=== PATIENT | male | born 1930 | race Caucasian/White ===

== ENCOUNTER 2017-01-22 13:49 | Emergency (ER) | payer MEDICARE, OTHER ==
[2017-01-22 13:54] VITALS: BMI 28.0
[2017-01-22 14:57] LABS: ALB/GLOB RATIO 1.2 (1.1-1.8); ALKALINE PHOSPHATASE 72 U/L (38-126); ALT/SGPT 26 U/L (7-56); AST/SGOT 34 U/L (17-59); BILIRUBIN,TOTAL 0.3 mg/dL (0.2-1.3); BLOOD UREA NITROGEN 34 mg/dL (7-21); CALCIUM 9.2 mg/dL (8.4-10.5); CARBON DIOXIDE 26 mmol/L (21-33); CHLORIDE 103 mmol/L (98-107); GFR AFRICAN-AMERICAN 46; GLUCOSE,RANDOM 132 mg/dL (70-110); POTASSIUM 4.6 mmol/L (3.6-5.0); SODIUM 142 mmol/L (132-148); TOTAL PROTEIN 7.5 g/dL (5.8-8.3)
[2017-01-22 14:58] LABS: INR 1.02 (0.93-1.08)
[2017-01-22 15:09] LABS: TROPONIN I < 0.01 ng/mL
[2017-01-22 15:10] LABS: BASO # 0.01 K/mm3 (0.0-2.0); BASO % 0.1 % (0.0-3.0); EOS # 0.2 (0.0-0.7); EOS % 2.2 % (1.5-5.0); GRAN # 4.54 (1.4-6.5); GRAN % 67.4 % (50.0-68.0); LYMPH # 1.6 (1.2-3.4); LYMPH % 23.3 % (22.0-35.0); MEAN CELL VOLUME 88.9 fl (80.0-105.0); MEAN CORPUSCULAR HEMOGLOBIN 29.4 pg (25.0-35.0); MEAN PLATELET VOLUME 8.9 fl (7.0-11.0); MONO # 0.5 (0.1-0.6); RED CELL DISTRIBUTION WIDTH 13.8 % (11.5-14.5); WHITE BLOOD COUNT 6.7 10^3/ul (4.5-11.0)
[2017-01-22 15:27] LABS: URINE BILIRUBIN NEGATIVE (NEGATIVE); URINE BLOOD NEGATIVE (NEGATIVE); URINE GLUCOSE (UA) NEGATIVE (NEGATIVE); URINE KETONE NEGATIVE (NEGATIVE); URINE LEUKOCYTE ESTERASE NEGATIVE Leu/uL (NEGATIVE); URINE PROTEIN 100 mg/dL (<30 mg/dL); URINE UROBILINOGEN 0.2 E.U./dL (<1 E.U./dL)
[2017-01-22 15:29] LABS: URINE APPEARANCE CLEAR (CLEAR); URINE COLOR YELLOW (YELLOW)
[2017-01-22] MEDS ORDERED: Sodium Chloride 0.9% 1,000 ML IV SCH (15:30)
--- NOTE | 2017-01-22 15:31 | CT ---
PROCEDURE: CT HEAD WITHOUT CONTRAST. HISTORY: RLE weakness COMPARISON: CT 05/31/2016 TECHNIQUE: Axial computed tomography images were obtained through the head/brain without intravenous contrast. Radiation dose: Total exam DLP = 689 mGy-cm. This CT exam was performed using one or more of the following dose reduction techniques: Automated exposure control, adjustment of the mA and/or kV according to patient size, and/or use of iterative reconstruction technique. FINDINGS: HEMORRHAGE: No intracranial hemorrhage. BRAIN: No mass effect or edema. There is a focal area of encephalomalacia in the parietal lobe. This is unchanged. There are no acute findings. VENTRICLES: Unremarkable. No hydrocephalus. CALVARIUM: Unremarkable. PARANASAL SINUSES: Unremarkable as visualized. No significant inflammatory changes. MASTOID AIR CELLS: Unremarkable as visualized. No inflammatory changes. OTHER FINDINGS: None. IMPRESSION: No acute intracranial findings
--- NOTE | 2017-01-22 15:40 | CP.PCM.CON ---
History of Present Illness - History of Present Illness History of Present Illness: Mr. Dixon is an 86-year-old man with a past medical history of atrial fibrillation, ischemic stroke, on Eliquis, who had a fall down the stairs about one week ago resulting in a hematoma over the buttock region. This morning, he was noted to have slurred speech and difficulty, but that improved. He was also having more trouble with ambulation due to right lower extremity weakness. He continues to complain of abdominal and right thigh pain. Review of Systems - Review of Systems All systems: reviewed and no additional remarkable complaints except Past Patient History - Infectious Disease Hx of Infectious Diseases: None - Tetanus Immunizations Tetanus Immunization: Unknown - Past Medical History & Family History Past Medical History?: Yes - Past Social History Smoking Status: Never Smoked - CARDIAC Hx Cardiac Disorders: Yes Hx Hypertension: Yes - PULMONARY Hx Chronic Obstructive Pulmonary Disease (COPD): No Hx Pneumonia: No - NEUROLOGICAL HX Cerebrovascular Accident: Yes (11/13/2013) - HEENT Hx HEENT Problems: (RX GLASSES) - RENAL Hx Renal Failure: No - ENDOCRINE/METABOLIC Hx Diabetes Mellitus Type 2: Yes - HEMATOLOGICAL/ONCOLOGICAL Hx Blood Disorders: No - INTEGUMENTARY Hx Dermatological Problems: No - MUSCULOSKELETAL/RHEUMATOLOGICAL Hx Arthritis: (Gout) - GASTROINTESTINAL Hx Gastroesophageal Reflux: No - GENITOURINARY/GYNECOLOGICAL Hx Genitourinary Disorders: Yes Hx Prostate Cancer: Yes - PSYCHIATRIC Hx Psychophysiologic Disorder: No Hx Substance Use: No - SURGICAL HISTORY Hx Surgeries: Yes Other/Comment: b/l eye surgery - ANESTHESIA Hx Anesthesia: Yes Hx Anesthesia Reactions: No Hx Malignant Hyperthermia: No Meds Allergies/Adverse Reactions: Allergies Allergy/AdvReac Type Severity Reaction Status Date / Time No Known Allergies Allergy Verified 06/04/16 20:15 - Medications Medications: Current Medications Sodium Chloride (Sodium Chloride 0.9%) 1,000 mls @ 100 mls/hr IV .Q10H VALENTIN Physical Exam - Head Exam Head Exam: ATRAUMATIC, NORMAL INSPECTION, NORMOCEPHALIC - Eye Exam Eye Exam: EOMI, Normal appearance, PERRL - ENT Exam ENT Exam: Mucous Membranes Moist, Normal Exam - Respiratory Exam Respiratory Exam: Clear to Auscultation Bilateral, NORMAL BREATHING PATTERN - Cardiovascular Exam Cardiovascular Exam: Irregular Rhythm, +S1, +S2 - GI/Abdominal Exam GI & Abdominal Exam: Normal Bowel Sounds, Soft. absent: Tenderness - Rectal Exam Rectal Exam: Deferred - Extremities Exam Extremities exam: Positive for: tenderness - Back Exam Back exam: CVA tenderness (R) - Neurological Exam Neurological exam: Abnormal Gait, CN II-XII Intact, Oriented x3, Reflexes Normal Additional comments: NIHSS= 2 - Expanded Neurological Exam Expanded Patient oriented to: person, place, time Cranial nerves: EOM's Intact: Normal, Facial Sensation: Normal, Nystagmus: Normal Ataxia: No Cerebellar Function: Finger to Nose: Normal Upper motor neuron: Babinski Sign: Normal Sensory exam: Lower Extremity Light Touch: Normal, Lower Extremity Pin Prick: Normal, Upper Extremity Light Touch: Normal, Upper Extremity Pin Prick: Normal Neuro motor strength exam: Left Upper Extremity: 5, Right Upper Extremity: 5, Left Lower Extremity: 5, Right Lower Extremity: 3 DTR: Achilles Tendon Left: 2+, Achilles Tendon Right: 2+, Bicep Left: 2+, Bicep Right: 2+, Brachioradialis Left: 2+, Brachioradialis Right: 2+, Patellar Left: 2 +, Patellar Right: 2+, Tricep Left: 2+, Tricep Right: 2+ - Psychiatric Exam Psychiatric exam: Normal Affect, Normal Mood - Skin Skin Exam: Dry, Intact, Normal Color, Warm Results - Vital Signs Recent Vital Signs: Last Vital Signs Temp 97.9 F 01/22/17 13:50 Pulse 75 01/22/17 13:50 Resp 18 01/22/17 13:50 BP 171/75 H 01/22/17 13:50 Pulse Ox 97 01/22/17 13:50 - Labs Result Diagrams: 01/22/17 14:30 01/22/17 14:30 Labs: Laboratory Results - last 24 hr 01/22/17 01/22/17 01/22/17 14:30 14:30 14:30 WBC 6.7 D RBC 3.71 Hgb 10.9 L Hct 33.0 L MCV 88.9 MCH 29.4 MCHC 33.0 RDW 13.8 Plt Count 295 MPV 8.9 Gran % 67.4 Lymph % (Auto) 23.3 Williams % (Auto) 7.0 H Eos % (Auto) 2.2 Baso % (Auto) 0.1 Gran # 4.54 Lymph # 1.6 Williams # 0.5 Eos # 0.2 Baso # 0.01 PT 11.0 INR 1.02 APTT 28.0 Sodium 142 Potassium 4.6 Chloride 103 Carbon Dioxide 26 Anion Gap 18 BUN 34 H Creatinine 1.7 H Est GFR ( Amer) 46 Est GFR (Non-Af Amer) 38 Random Glucose 132 H Calcium 9.2 Total Bilirubin 0.3 AST 34 ALT 26 Alkaline Phosphatase 72 Troponin I < 0.01 Total Protein 7.5 Albumin 4.2 Globulin 3.4 Albumin/Globulin Ratio 1.2 - Imaging and Cardiology CT scan - head Status: Image reviewed by me, Report reviewed by me (No acute findings. ) Assessment & Plan (1) Right leg weakness Assessment and Plan: The patient also complains of pain in the abdominal and thigh region. With the history of fall and being on Eliquis, there is concern for a possible retroperitoneal hematoma. He has also had recent blood in the urine and may by at risk for bleed. CT of the head does not show acute findings. If there is no intra-abdominal or peripheral compression abnormality to explain the proximal leg weakness on the right side, the patient may be having an ischemic event. In that case, an MRI of the brain without contrast is indicated. I recommend the followin. Telemetry 2. MRI of the brain without contrast 3. Echocardiogram 4. Hydration with NS at 100 mL/hr 5. Permissive hypertension unless there is a hematoma (do not treat BP unless it is higher than 200/100 mm Hg) 6. PT/OT eval and treat 7. Continue Eliquis 2.5 mg BID and Lipitor 40 mg daily for secondary stroke prevention (unless there is hematoma formation). Thank you. Status: Acute Priority: High
[2017-01-22] MEDS ORDERED: Iohexol 350 MG/100 ML VIAL ONE (15:45)
[2017-01-22 15:48] LABS: URINE AMORPHOUS SEDIMENT FEW; URINE BACTERIA MOD (NEG); URINE RBC 0 - 2 /hpf (0-2); URINE WBC 0 - 2 /hpf (0-6)
--- NOTE | 2017-01-22 15:50 | CT ---
PROCEDURE: CT Abdomen and Pelvis with contrast HISTORY: RETROPERITONEAL BLEED COMPARISON: None. TECHNIQUE: Contrast dose: 100 cc of Omni 350 Radiation dose: Total exam DLP = 447 mGy-cm. This CT exam was performed using one or more of the following dose reduction techniques: Automated exposure control, adjustment of the mA and/or kV according to patient size, and/or use of iterative reconstruction technique. The patient had a BUN of 34 a creatinine of 1.[address] a GFR 38[address] Lozada insisted on IV contrast for this case. FINDINGS: LOWER THORAX: Unremarkable. LIVER: Unremarkable. No gross lesion or ductal dilatation. GALLBLADDER AND BILE DUCTS: Unremarkable. PANCREAS: Unremarkable. No gross lesion or ductal dilatation. SPLEEN: Unremarkable. ADRENALS: Unremarkable. No mass. KIDNEYS AND URETERS: Bilateral nonobstructing renal stones. VASCULATURE: Unremarkable. No aortic aneurysm. BOWEL: Unremarkable. No obstruction. No gross mural thickening. There is a left inguinal hernia which contains a segment of the sigmoid colon. There is no associated obstruction. The hernia measures 4.2 x 6.4 cm as seen on image 154 APPENDIX: Normal appendix. PERITONEUM: Unremarkable. No free fluid. No free air. There is no evidence of retroperitoneal hemorrhage LYMPH NODES: Unremarkable. No enlarged lymph nodes. BLADDER: Unremarkable. REPRODUCTIVE: Unremarkable. BONES: No acute fracture. OTHER FINDINGS: None. IMPRESSION: No evidence of retroperitoneal hemorrhage. Left inguinal hernia without obstruction
--- NOTE | 2017-01-22 16:17 | RAD ---
PROCEDURE: CHEST RADIOGRAPH, 1 VIEW HISTORY: r/o infiltrate COMPARISON: 06/04/2016 FINDINGS: LUNGS: Clear. PLEURA: No pneumothorax or pleural fluid seen. CARDIOVASCULAR: Normal. OSSEOUS STRUCTURES: No significant abnormalities. VISUALIZED UPPER ABDOMEN: Normal. OTHER FINDINGS: Moderate aortic tortuosity IMPRESSION: No active disease.
--- NOTE | 2017-01-22 16:22 | MRI ---
PROCEDURE: MRI BRAIN WITHOUT CONTRAST HISTORY: RLE weakness COMPARISON: Earlier CT of the head TECHNIQUE: Multiplanar, multisequence MR images of the brain were obtained without intravenous contrast enhancement. FINDINGS: HEMORRHAGE: None DWI: No evidence of an acute or early subacute infarction. BRAIN PARENCHYMA: No mass effect or edema. Mild to moderate chronic microvascular changes are seen in the periventricular white matter and the melanie. VENTRICLES: Unremarkable. No hydrocephalus. CRANIUM: Unremarkable. ORBITS: Grossly unremarkable. PARANASAL SINUSES/MASTOIDS: Clear VASCULAR SYSTEM: Skull base flow voids intact. OTHER FINDINGS: None. IMPRESSION: No acute intracranial findings.
--- NOTE | 2017-01-22 17:31 | ED PDOC ---
Arrival/HPI - General Chief Complaint: Weakness/Neurological Deficit Time Seen by Provider: 01/22/17 13:54 Historian: Patient - History of Present Illness Narrative History of Present Illness (Text): 01/22/17 14:07 A 86 year old male, whose past medical history includes CVA, presents to the emergency department complaining of possible CVA. Patient reports experiencing right arm weakness since yesterday and right leg weakness when he awoke at 07: 00 today. Patient denies of any fever, cough, chest pain, shortness of breath, abdominal pain, or any other complaints. Also, patient is complaint with all medications prescribed. No PMD Time/Duration: 24 hours (right arm weakness), Other (right leg weakness at 07:00 ) Symptom Onset: Sudden Symptom Course: Unchanged Context: Home Past Medical History - Provider Review Nursing Documentation Reviewed: Yes - Infectious Disease Hx of Infectious Diseases: None - Tetanus Immunization Tetanus Immunization: Unknown - Cardiac Hx Cardiac Disorders: Yes Hx Hypertension: Yes - Pulmonary Hx Chronic Obstructive Pulmonary Disease (COPD): No Hx Pneumonia: No - Neurological HX Cerebrovascular Accident: Yes (11/13/2013) - HEENT Hx HEENT Disorder: (RX GLASSES) - Renal Hx Renal Failure: No - Endocrine/Metabolic Hx Diabetes Mellitus Type 2: Yes - Hematological/Oncological Hx Blood Disorders: No - Integumentary Hx Dermatological Disorder: No - Musculoskeletal/Rheumatological Hx Arthritis: (Gout) - Gastrointestinal Hx Gastroesophageal Reflux: No - Genitourinary/Gynecological Hx Genitourinary Disorders: Yes Hx Prostate Cancer: Yes - Psychiatric Hx Psychophysiologic Disorder: No Hx Substance Use: No - Surgical History Other/Comment: b/l eye surgery - Anesthesia Hx Anesthesia: Yes Hx Anesthesia Reactions: No Hx Malignant Hyperthermia: No - Suicidal Assessment Feels Threatened In Home Enviroment: No Family/Social History - Physician Review Nursing Documentation Reviewed: Yes Family/Social History: No Known Family HX Smoking Status: Never Smoked Hx Alcohol Use: No (But reported drinking 1 beer a day (last was more than 4 days ago)) Hx Substance Use: No Allergies/Home Meds Allergies/Adverse Reactions: Allergies No Known Allergies Allergy (Verified 06/04/16 20:15) Home Medications: Home Meds Medication Instructions Recorded Confirmed Insulin Lispro [Humalog (Insulin See Protocol SQ ACHS 06/04/16 01/22/17 Lispro)] Polyethylene Glycol 3350 [Miralax] 17 gm PO BID 06/04/16 01/22/17 Review of Systems - Physician Review All systems were reviewed & negative as marked: Yes - Review of Systems Constitutional: absent: Fevers Respiratory: absent: SOB, Cough Gastrointestinal: absent: Abdominal Pain Neurological: Focal Weakness (right arm weakness and right leg weakness) Physical Exam Vital Signs Reviewed: Yes Vital Signs Temp Pulse Resp BP Pulse Ox 01/22/17 19:00 97.6 F 82 19 146/82 99 01/22/17 17:00 97.8 F 80 19 158/86 H 100 01/22/17 15:45 74 18 133/65 97 01/22/17 13:50 97.9 F 75 18 171/75 H 97 Temperature: Afebrile Blood Pressure: Hypertensive Pulse: Regular Respiratory Rate: Normal Appearance: Positive for: Well-Appearing, Non-Toxic, Comfortable Pain Distress: None Mental Status: Positive for: Alert and Oriented X 3 Finger Stick Blood Glucose: 168 - Systems Exam Head: Present: Atraumatic, Normocephalic Pupils: Present: PERRL Extroacular Muscles: Present: EOMI Conjunctiva: Present: Normal Mouth: Present: Moist Mucous Membranes Neck: Present: Normal Range of Motion Respiratory/Chest: Present: Clear to Auscultation, Good Air Exchange. No: Respiratory Distress, Accessory Muscle Use Cardiovascular: Present: Regular Rate and Rhythm, Normal S1, S2. No: Murmurs Abdomen: Present: Normal Bowel Sounds. No: Tenderness, Distention, Peritoneal Signs Back: Present: Normal Inspection Upper Extremity: Present: Normal Inspection. No: Cyanosis, Edema Lower Extremity: Present: Normal Inspection. No: Edema Neurological: No: Motor Func Grossly Intact (4/5 right lower extremity strength ; 4/5 right upper extremity strength) Skin: Present: Warm, Dry, Normal Color. No: Rashes Psychiatric: Present: Alert, Oriented x 3, Normal Insight, Normal Concentration Medical Decision Making ED Course and Treatment: 01/22/17 14:12 Impression: 86 year old male with possible stroke. Physical exam shows in neuro exam right lower extremity 4/5 motor function and right upper extremity 4/5 motor function. Plan: -- EKG -- Head CT -- Brain MRI -- Chest X-ray -- Labs -- Urine Culture -- Urinalysis -- Reassess and disposition Prior Visits: Notes and results from previous visits were reviewed. Patient was last seen in the emergency department on 05/31/2016 for right lower extremity weakness. Patient was diagnosed with CVA and was admitted. Progress Notes: EKG: Ordered, reviewed, and independently interpreted the EKG. Rate : 77 BPM Rhythm : NSR Interpretation : No ST-segment elevations or depressions, no T-wave inversions, normal intervals. Comparison : No previous EKG for comparison. 01/22/2017 15:[address] FINDINGS: HEMORRHAGE: No intracranial hemorrhage. BRAIN: No mass effect or edema. There is a focal area of encephalomalacia in the parietal lobe. This is unchanged. There are no acute findings. VENTRICLES: Unremarkable. No hydrocephalus. CALVARIUM: Unremarkable. PARANASAL SINUSES: Unremarkable as visualized. No significant inflammatory changes. MASTOID AIR CELLS: Unremarkable as visualized. No inflammatory changes. OTHER FINDINGS: None. IMPRESSION: No acute intracranial findings Dictator : Alex Stewart MD 01/22/2017 16:15 Chest X-ray FINDINGS: LUNGS: Clear. PLEURA: No pneumothorax or pleural fluid seen. CARDIOVASCULAR: Normal. OSSEOUS STRUCTURES: No significant abnormalities. VISUALIZED UPPER ABDOMEN: Normal. OTHER FINDINGS: Moderate aortic tortuosity IMPRESSION: No active disease. Dictator : Alex Stewart MD 01/22/2017 16:20 Brain MRI FINDINGS: HEMORRHAGE: None DWI: No evidence of an acute or early subacute infarction. BRAIN PARENCHYMA: No mass effect or edema. Mild to moderate chronic microvascular changes are seen in the periventricular white matter and the melanie. VENTRICLES: Unremarkable. No hydrocephalus. CRANIUM: Unremarkable. ORBITS: Grossly unremarkable. PARANASAL SINUSES/MASTOIDS: Clear VASCULAR SYSTEM: Skull base flow voids intact. OTHER FINDINGS: None. IMPRESSION: No acute intracranial findings. Dictator : Alex Stewart MD - Lab Interpretations Lab Results: 01/22/17 14:30 01/22/17 14:30 Lab Results 01/22/17 14:50: Urine Color Yellow, Urine Appearance Clear, Urine pH 6.0, Ur Specific [place] 1.025, Urine Protein 100 H, Urine Glucose (UA) Negative, Urine Ketones Negative, Urine Blood Negative, Urine Nitrate Negative, Urine Bilirubin Negative, Urine Urobilinogen 0.2, Ur Leukocyte Esterase Negative, Urine RBC 0 - 2, Urine WBC 0 - 2, Ur Epithelial Cells None, Amorphous Sediment Few, Urine Bacteria Mod, Hyaline Casts 0 - 2, Fine Granular Casts 0 - 2 01/22/17 14:30: Sodium 142, Potassium 4.6, Chloride 103, Carbon Dioxide 26, Anion Gap 18, BUN 34 H, Creatinine 1.7 H, Est GFR ( Amer) 46, Est GFR ( Non-Af Amer) 38, Random Glucose 132 H, Calcium 9.2, Total Bilirubin 0.3, AST 34 , ALT 26, Alkaline Phosphatase 72, Troponin I < 0.01, Total Protein 7.5, Albumin 4.2, Globulin 3.4, Albumin/Globulin Ratio 1.2 01/22/17 14:30: PT 11.0, INR 1.02, APTT 28.0 01/22/17 14:30: WBC 6.7 D, RBC 3.71, Hgb 10.9 L, Hct 33.0 L, MCV 88.9, MCH 29.4 , MCHC 33.0, RDW 13.8, Plt Count 295, MPV 8.9, Gran % 67.4, Lymph % (Auto) 23.3 , [place] % (Auto) 7.0 H, Eos % (Auto) 2.2, Baso % (Auto) 0.1, Gran # 4.54, Lymph # 1.6, [place] # 0.5, Eos # 0.2, Baso # 0.01 I have reviewed the lab results: Yes - RAD Interpretation Radiology Orders: 01/22/17 14:09 HEAD W/O CONTRAST [CT] Stat 01/22/17 14:10 BRAIN WITHOUT CONTRAST [MRI] Stat 01/22/17 14:12 CHEST ONE VIEW [RAD] Stat 01/22/17 15:10 ABD & PELVIS IV CONTRAST ONLY [CT] Stat - Medication Orders Current Medication Orders: Discontinued Medications Sodium Chloride (Sodium Chloride 0.9%) 1,000 mls @ 100 mls/hr IV .Q10H VALENTIN Last Admin: 01/22/17 15:42 Dose: 100 mls/hr Iohexol (Omnipaque 350 100 Ml) Confirm Administered Dose 350 mg .ROUTE .STK-MED ONE Stop: 01/22/17 15:46 NIHSS Scale ([place]) Time Performed: 15:50 - How Severe is the [place]oke Baseline Level of Consciousness: 0=Alert LOC to Questions: 0=Both comments correct LOC to commands: 0=Obeys both correctly Best Gaze: 0=Normal Visual: 0=No visual loss Facial: 0=Normal Motor Arm - Left: 0=No drift Motor Arm - Right: 0=No drift Motor Leg - Left: 0=No drift Motor Leg - Right: 1=Drift before 5 sec Limb Ataxia: 0=Absent Sensory: 0=Normal Best Language: 0=No aphasia Dysarthia: 0=Normal articulation Extinction & Inattention (Neglect): 0=Normal, no object Score: 1 Risk Level: Minor Stroke Risk rTPA Inclusion/Exclusion - Refusal of Treatment Patient Refused Treatment: No - Inclusion Criteria for Altepase Patient is 18 years or Older: Yes The Clinical Diagnosis of Ischemic Stroke That is Causing a Potentially Disabling Neurological Deficit: Yes Time of Onset is Well Established to be Less Than 270 Minute Before Treatment Would Begin: No Risk/Benefit Discussed With Patient/Family Member Present: Yes - Scribe Statement The provider has reviewed the documentation as recorded by the Mundo Martin Provider Scribe Attestation: All medical record entries made by the Mundo were at my direction and personally dictated by me. I have reviewed the chart and agree that the record accurately reflects my personal performance of the history, physical exam, medical decision making, and the department course for this patient. I have also personally directed, reviewed, and agree with the discharge instructions and disposition. Disposition/Present on Arrival - Present on Arrival Any Indicators Present on Arrival: No History of DVT/PE: No History of Uncontrolled Diabetes: Yes Urinary Catheter: No History of Decub. Ulcer: No History Surgical Site Infection Following: None - Disposition Have Diagnosis and Disposition been Completed?: Yes Diagnosis: TIA (transient ischemic attack) Disposition: HOME/ ROUTINE Disposition Time: 16:30 Patient Problems: Current Active Problems Problem Status Onset Right leg weakness Acute Condition: FAIR Critical Care Time - Critical Care Note Total Time (in mins): 40 Documented critical care: time excludes all time spent performing seperately billable procedures.
[2017-01-22 20:13] VITALS: RESP 19
[2017-01-22 20:15] VITALS: BP 146/82; PULSE 82; TEMP 97.6; O2SAT 99
--- NOTE | 2017-01-23 05:09 | HP ---
HISTORY OF PRESENT ILLNESS: The patient is seen in the emergency room. The patient was brought in by the family. Apparently, the patient has had symptoms of slurred speech this morning and the patient had a fall one week ago and sustained an injury to the right buttock. The patient had pain in the right leg and right side of the abdomen, and the patient had poor balance and unstable gait and the fall was from the staircase of the house. However, the patient is alert and conscious. The patient is lying in bed, very pleasant gentleman, answers all questions. PAST MEDICAL HISTORY: His past history is significant and that he has history of diabetes, history of ischemic stroke in the past. The patient has been diagnosed with atherosclerotic heart disease with atrial fibrillation. The patient also has history of constipation, gastritis, gout, hyperlipidemia, and vitamin D deficiency. The patient has no history of prior surgery. PHYSICAL EXAMINATION: GENERAL: He is conscious, able to answer questions, but there is noticeable slurring of speech on and off. HEENT: The patient's head is normocephalic. There is no evidence of any injury to the head. The patient's eyes, pupils are equal bilaterally. The movement of the eye is within normal limits. Cranial nerves involving the ophthalmic cranial nerves within normal limits. The patient's optic nerve was not examined. NECK: The patient's examination of the neck, the thyroid is not clinically enlarged. The JVP is flat. Carotid pulses are present bilaterally and palpable. CARDIOPULMONARY: The patient's examination of the heart is atrial fibrillation, but the heart, there is no evidence of any murmurs or pericardial rub. LUNGS: Breath sounds are vesicular. No adventitious sounds are heard. ABDOMEN: Soft. Liver and spleen not palpable. No tenderness noted, but he has some discomfort on the right side of the abdomen and the thigh area. There is no localizing signs in the abdomen. He has an evidence of hernia that has been discovered on the CAT scan. FREELANCE RECRUITER: The patient's examination of the central nervous system, he is conscious, rational, and oriented. The patient's cranial nerves II to XII are intact. The patient's sense of smell is present. The patient's sense of sight seem to be present clinically very well. The patient's ability to assess the motor functions is postponed. The patient was evaluated by the neurologist. He does have balance problem and gait problem currently. LABORATORY DATA: The patient's blood work examination; he has hemoglobin of 10.9 and his chemistry, BUN is 34, creatinine 1.7. His GFR is 46, which is lower than normal. His sodium is 142, his sugar is 132. The patient has well controlled diabetes at this time. The patient's CAT scan and x-ray shows no evidence of any abdominal pathology. The patient's MRI of the brain does not reveal any evidence of hemorrhage, stroke, or mass. ASSESSMENT AND PLAN: The patient is placed in observation for TIA and maybe some ischemic event that is causing gait problem. A neurological evaluation was ordered and done. The patient will be evaluated in the morning. We will place his medications and keep him on heart healthy, diabetic diet. He does not have any allergies. The patient does not have a DNR. Dora So MD MTDJulian
--- NOTE | 2017-01-23 13:23 | CARD ---
APPROVED REPORT EKG Measurement Heart [id number] ID [id number] <Conclusion> Normal sinus rhythm Normal ECG
== END 2017-01-22 19:47 | disposition home or self-care (01) ==
LOC: ED 13:49 → ERH 16:30 → UNDOADMOB 16:30 → ERH 19:00 → ED 19:47
DX: G45.9 Transient cerebral ischemic attack, unspecified (principal); E11.9 Type 2 diabetes mellitus without complications; I10 Essential (primary) hypertension
CPT/HCPCS: 70450; 70551; 71010; 74177; 80053; 81001; 82948; 84484; 85025; 85610; 85730; 87086; 93005; 99285; J7040; Q9967

== ENCOUNTER 2017-08-31 11:28 | Inpatient (IN) | payer MEDICARE, OTHER ==
[2017-08-31 11:36] VITALS: BMI 25.0
--- NOTE | 2017-08-31 11:43 | EDPD ---
HPI Stroke - General Time Seen by Provider: 08/31/17 11:34 Chief Complaint: Weakness/Neurological Deficit Historian: Patient, Family ([id number]) - History of Present Illness Narrative History of Present Illness (Free Text): 08/31/17 11:43 Patient is a 87 year old male with a past medical history of 2 strokes on Eliquis and Aspirin daily, who presents to the emergency department for possible stroke which occurred this morning. [id number] reports patient recently traveled back from [place] yesterday night. She notes he was last seen well at 22:00. Family noticed right sided weakness and slurring of speech this morning at 08:00. Patient also reports right leg pain but denies denies fevers, chills, headache, dizziness, vision changes, chest pain, shortness of breath, dyspnea on exertion, cough, abdominal pain, nausea, vomiting, diarrhea, back pain, neck pain or any other complaint. Onset:: This morning Context: Home Associated Symptoms: other (RLE pain) - Location Location: Speech (slurred speech) Locate Right: Upper extremity (weakness), Lower extremity (weakness) rTPA Inclusion/Exclusion - Refusal of Treatment Patient Refused Treatment: No - Inclusion Criteria for Altepase Patient is 18 years or Older: Yes The Clinical Diagnosis of Ischemic Stroke That is Causing a Potentially Disabling Neurological Deficit: Yes Time of Onset is Well Established to be Less Than 270 Minute Before Treatment Would Begin: No Risk/Benefit Discussed With Patient/Family Member Present: No Past Medical History - Provider Review Nursing Documentation Reviewed: Yes - Travel History Have you recently traveled outside [place] w/in the past 3 mons?: Yes If Yes, travel location?: [place] - Infectious Disease Hx of Infectious Diseases: None - Tetanus Immunization Tetanus Immunization: Unknown - Cardiac Hx Cardiac Disorders: Yes Hx Hypertension: Yes - Pulmonary Hx Chronic Obstructive Pulmonary Disease (COPD): No Hx Pneumonia: No - Neurological HX Cerebrovascular Accident: Yes (11/13/2013) - HEENT Hx HEENT Disorder: (RX GLASSES) - Renal Hx Renal Failure: No - Endocrine/Metabolic Hx Diabetes Mellitus Type 2: Yes - Hematological/Oncological Hx Blood Disorders: No - Integumentary Hx Dermatological Disorder: No - Musculoskeletal/Rheumatological Hx Arthritis: (Gout) - Gastrointestinal Hx Gastroesophageal Reflux: No - Genitourinary/Gynecological Hx Genitourinary Disorders: Yes Hx Prostate Cancer: Yes - Psychiatric Hx Psychophysiologic Disorder: No Hx Substance Use: No - Surgical History Other/Comment: b/l eye surgery - Anesthesia Hx Anesthesia: Yes Hx Anesthesia Reactions: No Hx Malignant Hyperthermia: No - Suicidal Assessment Feels Threatened In Home Enviroment: No Family/Social History - Family/Social History Family History: Non-Contributory - Dr. Morin Nursing documentation reviewed.: Yes Allergies/Home Meds Allergies/Adverse Reactions: Allergies No Known Allergies Allergy (Verified 08/31/17 11:33) Home Medications: Home Meds Medication Instructions Recorded Confirmed Insulin Lispro [Humalog (Insulin See Protocol SQ ACHS 06/04/16 01/22/17 Lispro)] Polyethylene Glycol 3350 [Miralax] 17 gm PO BID 06/04/16 01/22/17 Review of Systems - Physician Review All systems were reviewed & negative as marked: Yes - Review of Systems Constitutional: absent: Fevers, Night Sweats Eyes: absent: Vision Changes Respiratory: absent: SOB, Cough Cardiovascular: absent: Chest Pain, CHILDRESS Gastrointestinal: absent: Abdominal Pain, Diarrhea, Nausea, Vomiting Musculoskeletal: Other (Right lower extremity pain). absent: Back Pain, Neck Pain Neurological: Speech Changes (slurred speech), Other (right sided weakness and numbness). absent: Headache, Dizziness ED Stroke Physical Exam Vital Signs Reviewed: Yes Vital Signs Pulse Resp BP Pulse Ox 08/31/17 11:33 77 18 156/76 H 99 Blood Pressure: Hypertensive Pulse: Regular Respiratory Rate: Normal Appearance: Positive for: Well-Appearing, Non-Toxic, Comfortable Pain Distress: None Mental Status: Positive for: Alert and Oriented X 3 - Systems Exam Head: Present: Atraumatic, Normocephalic Pupils: Present: PERRL Extroacular Muscles: Present: EOMI Conjunctiva: Present: Normal Mouth: Present: Moist Mucous Membranes Neck: Present: Normal Range of Motion Respiratory/Chest: Present: Clear to Auscultation, Good Air Exchange. No: Respiratory Distress, Accessory Muscle Use Cardiovascular: Present: Regular Rate and Rhythm, Normal S1, S2. No: Murmurs Abdomen: Present: Normal Bowel Sounds. No: Tenderness, Distention, Peritoneal Signs Back: Present: Normal Inspection. No: Paraspinal Tenderness Upper Extremity: Present: Normal Inspection, Normal ROM, NORMAL PULSES, Neurovascularly Intact. No: Cyanosis, Edema Lower Extremity: Present: NORMAL PULSES, Neurovascularly Intact, Other (Right lower leg weakness). No: Edema, CALF TENDERNESS Neurologic: Present: GCS=15, CN II-XII Intact, Speech Normal (no slurring of speech), Normal Sensory Function Skin: Present: Warm, Dry, Normal Color. No: Rashes Lymphatic: Present: OX3, NI, NC Psychiatric: Present: Alert, Oriented x 3, Normal Insight, Normal Concentration , Other (Patient repeating answers) Medical Decision Making ED Course and Treatment: 08/31/17 11:43 Impression: Patient is a 87 year old male with right sided weakness Differential Diagnosis included but are not limited to: CVA vs. Lower lumbar musculoskeletal Plan: -- CTA head/neck -- CT head -- CT abdomen and pelvis -- Chest xray -- EKG -- Labs -- IV fluids -- Reassess and disposition Progress Notes: 08/31/17 11:26 EKG shows NSR at [address]-segment elevations, normal intervals, normal axis. Interpreted by me. 08/31/17 11:42 Stroke alert activated at this time. 08/31/17 12:[address] Lozada, recommends CTA of head/neck, and CT of abdomen and pelvis for retroperitoneal hematoma work up. Report Date : 08/31/2017 12:03:45 PROCEDURE: CT HEAD WITHOUT CONTRAST. Dictator : Prince Rodriguez MD IMPRESSION: No evidence of acute infarct. No acute intracranial hemorrhage. Small old right high parietal infarct. Old bilateral basal ganglia and right thalamic lacunar infarcts. Chronic white matter ischemic change. These findings were discussed by telephone with Dr. Mark in the emergency room at 12:02 p.m. on 08/31/2017. Report Date : 08/31/2017 12:15:50 Procedure: Chest xray Dictator : Prince Rodriguez MD IMPRESSION: No active disease. 08/31/17 12:41 Labs reviewed, creatinine of 1.9 and BUN of 30. Results discussed with Dr. Lozada. CTA head/neck and CT a/p with contrast cancelled. Dr. Lozada requested CT abd/pelv without contrast and MRI and MRA Head without contrast. Report Date : 08/31/2017 14:17:24 PROCEDURE: CT Abdomen and Pelvis without intravenous contrast Dictator : Alex Stewart MD IMPRESSION: There are bilateral inguinal hernias. The right-sided hernia contains fat and measures 27 x 38 mm. The left-sided hernia contains a segment of the sigmoid colon. There is no associated obstruction. This hernia measures 45 x 69 mm. Findings are unchanged 08/31/17 15:00 Dr. Lozada will f/u MRI results. I discussed the case with Dr. Love who will admit the patient to his service. IVF ordered. Aspirin given. - Critical Care Critical Care Minutes: 45 minutes - Lab Interpretations I have reviewed the lab results: Yes - Scribe Statement The provider has reviewed the documentation as recorded by the Scribe Don Espinal training under Cynthia Anderson Provider Scribe Attestation: All medical record entries made by the Scribe were at my direction and personally dictated by me. I have reviewed the chart and agree that the record accurately reflects my personal performance of the history, physical exam, medical decision making, and the department course for this patient. I have also personally directed, reviewed, and agree with the discharge instructions and disposition. NIHSS Scale (Maxwell) Time Performed: 11:45 - How Severe is the Stoke Baseline Level of Consciousness: 0=Alert LOC to Questions: 0=Both comments correct LOC to commands: 0=Obeys both correctly Best Gaze: 0=Normal Visual: 0=No visual loss Facial: 0=Normal Motor Arm - Left: 0=No drift Motor Arm - Right: 0=No drift Motor Leg - Left: 0=No drift Motor Leg - Right: 2=Falls before 5 sec Limb Ataxia: 1=Present Upper or Lower Sensory: 0=Normal Best Language: 0=No aphasia Dysarthia: 0=Normal articulation Extinction & Inattention (Neglect): 0=Normal, no object Score: 3 Risk Level: Minor Stroke Risk Disposition/Present on Arrival - Present on Arrival Any Indicators Present on Arrival: No History of DVT/PE: No History of Uncontrolled Diabetes: No Urinary Catheter: No History of Decub. Ulcer: No History Surgical Site Infection Following: None - Disposition Have Diagnosis and Disposition been Completed?: Yes Diagnosis: Cerebrovascular accident Disposition: HOSPITALIZED Disposition Time: 14:19 Patient Plan: Admission Condition: GUARDED
--- NOTE | 2017-08-31 12:05 | CT ---
PROCEDURE: CT HEAD WITHOUT CONTRAST. HISTORY: Code Stroke COMPARISON: 01/22/2017 TECHNIQUE: Axial computed tomography images were obtained through the head/brain without intravenous contrast. Radiation dose: Total exam DLP = 801.14 mGy-cm. This CT exam was performed using one or more of the following dose reduction techniques: Automated exposure control, adjustment of the mA and/or kV according to patient size, and/or use of iterative reconstruction technique. FINDINGS: HEMORRHAGE: No intracranial hemorrhage. BRAIN: No mass effect or edema. Mild atrophy less than expected for patient age. Small old right high parietal infarct. No evidence of acute infarct. Moderate periventricular white matter lucency with patchy and confluent areas of deep and subcortical white matter lucency, consistent with chronic microvascular ischemic change. Small old bilateral basal ganglia lacunar infarct. Small old right thalamic lacunar infarct. VENTRICLES: Unremarkable. No hydrocephalus. CALVARIUM: Unremarkable. PARANASAL SINUSES: Unremarkable as visualized. No significant inflammatory changes. MASTOID AIR CELLS: Unremarkable as visualized. No inflammatory changes. OTHER FINDINGS: None. IMPRESSION: No evidence of acute infarct. No acute intracranial hemorrhage. Small old right high parietal infarct. Old bilateral basal ganglia and right thalamic lacunar infarcts. Chronic white matter ischemic change. These findings were discussed by telephone with Dr. Mark in the emergency room at 12:02 p.m. on 08/31/2017.
--- NOTE | 2017-08-31 12:17 | RAD ---
HISTORY: Code Stroke COMPARISON: 01/22/2017 FINDINGS: LUNGS: No active pulmonary disease. PLEURA: No significant pleural effusion identified, no pneumothorax apparent. CARDIOVASCULAR: Normal. OSSEOUS STRUCTURES: No significant abnormalities. VISUALIZED UPPER ABDOMEN: Normal. OTHER FINDINGS: None. IMPRESSION: No active disease.
[2017-08-31 12:19] LABS: BASO # 0.01 K/mm3 (0.0-2.0); BASO % 0.1 % (0.0-3.0); EOS # 0.2 (0.0-0.7); EOS % 2.3 % (1.5-5.0); GRAN # 4.7 (1.4-6.5); GRAN % 66.5 % (50.0-68.0); HEMOGLOBIN 11.2 g/dL (14.0-18.0); LYMPH # 1.5 (1.2-3.4); MEAN CELL VOLUME 84.9 fl (80.0-105.0); MEAN CORPUSCULAR HEMOGLOBIN 27.3 pg (25.0-35.0); MEAN CORPUSCULAR HGB CONC 32.1 g/dl (31.0-37.0); MEAN PLATELET VOLUME 9.3 fl (7.0-11.0); MONO # 0.7 (0.1-0.6); MONO % 10.1 % (1.0-6.0); RBC 4.11 10^6/uL (3.5-6.1); RED CELL DISTRIBUTION WIDTH 15.7 % (11.5-14.5); WHITE BLOOD COUNT 7.1 10^3/ul (4.5-11.0)
[2017-08-31 12:28] LABS: ALB/GLOB RATIO 1.2 (1.1-1.8); ALBUMIN 4.1 g/dL (3.0-4.8); CALCIUM 9.1 mg/dL (8.4-10.5); INR 1.02 (0.93-1.08); PARTIAL THROMBOPLASTIN TIME 27.7 Seconds (25.1-36.5); PROTHROMBIN TIME 11.7 SECONDS (9.4-12.5)
[2017-08-31] MEDS: Sodium Chloride 0.9% 1,000 ML IV SCH ×2 (12:31→21:20)
[2017-08-31 12:48] LABS: TROPONIN I 0.01 ng/mL
--- NOTE | 2017-08-31 13:36 | CP.PCM.CON ---
History of Present Illness - History of Present Illness History of Present Illness: Mr. Dixno is an 87-year-old man with a past medical history of atrial fibrillation, HTN, dementia, who is well known to me, and was last at his baseline last night. According to the family, the patient was noted to have some slurred speech last night and today started to complain of right leg pain and weakness. He was more confused and had difficulty with ambulation. He was brought to the ED and a stroke alert was called. CT scan of the head did not show any acute findings. His creatinine was elevated, so there was concern for causing kidney injury and a CTA was not ordered. He flew back from [place] yesterday after being away for nearly one month and according to the patient, it was difficult for him to take his medications while he was away, therefor he did not take his Eliquis while he was there, but did take it yesterday and today. He was not a good candidate for IV tPA due to being outside the time window and being on Eliquis. Review of Systems - Review of Systems All systems: reviewed and no additional remarkable complaints except Past Patient History - Infectious Disease Hx of Infectious Diseases: None - Tetanus Immunizations Tetanus Immunization: Unknown - Past Medical History & Family History Past Medical History?: Yes - Past Social History Smoking Status: Never Smoked - CARDIAC Hx Cardiac Disorders: Yes Hx Hypertension: Yes - PULMONARY Hx Chronic Obstructive Pulmonary Disease (COPD): No Hx Pneumonia: No - NEUROLOGICAL HX Cerebrovascular Accident: Yes (11/13/2013) - HEENT Hx HEENT Problems: (RX GLASSES) - RENAL Hx Renal Failure: No - ENDOCRINE/METABOLIC Hx Diabetes Mellitus Type 2: Yes - HEMATOLOGICAL/ONCOLOGICAL Hx Blood Disorders: No - INTEGUMENTARY Hx Dermatological Problems: No - MUSCULOSKELETAL/RHEUMATOLOGICAL Hx Arthritis: (Gout) - GASTROINTESTINAL Hx Gastroesophageal Reflux: No - GENITOURINARY/GYNECOLOGICAL Hx Genitourinary Disorders: Yes Hx Prostate Cancer: Yes - PSYCHIATRIC Hx Psychophysiologic Disorder: No Hx Substance Use: No - SURGICAL HISTORY Other/Comment: b/l eye surgery - ANESTHESIA Hx Anesthesia: Yes Hx Anesthesia Reactions: No Hx Malignant Hyperthermia: No Meds Allergies/Adverse Reactions: Allergies Allergy/AdvReac Type Severity Reaction Status Date / Time No Known Allergies Allergy Verified 08/31/17 11:33 - Medications Medications: Current Medications Sodium Chloride (Sodium Chloride 0.9%) 1,000 mls @ 100 mls/hr IV .Q10H VALENTIN Last Admin: 08/31/17 12:31 Dose: 100 mls/hr Physical Exam - Constitutional Appears: Well - Head Exam Head Exam: ATRAUMATIC, NORMAL INSPECTION, NORMOCEPHALIC - Eye Exam Eye Exam: EOMI, Normal appearance, PERRL - Respiratory Exam Respiratory Exam: Clear to Auscultation Bilateral, NORMAL BREATHING PATTERN - Cardiovascular Exam Cardiovascular Exam: REGULAR RHYTHM - GI/Abdominal Exam GI & Abdominal Exam: Normal Bowel Sounds, Soft. absent: Tenderness - Rectal Exam Rectal Exam: Deferred - Neurological Exam Neurological exam: Abnormal Gait, Altered, CN II-XII Intact, Oriented x3, Reflexes Normal Additional comments: Slight pronator drift on RUE, drift and weakness with 3/5 strength of RLE, unable to maintain antigravity and limited by pain. LUE and LLE were normal. Sensation was intact throughout. Gait was not assessed. NIHSS = 4 Results - Vital Signs Recent Vital Signs: Last Vital Signs Temp 98.3 F 08/31/17 13:17 Pulse 79 08/31/17 13:17 Resp 18 08/31/17 13:17 BP 167/89 H 08/31/17 13:17 Pulse Ox 99 08/31/17 13:17 - Labs Result Diagrams: 08/31/17 12:14 08/31/17 12:14 Labs: Laboratory Results - last 24 hr 08/31/17 08/31/17 08/31/17 12:14 12:14 12:14 WBC 7.1 RBC 4.11 Hgb 11.2 L Hct 34.9 L MCV 84.9 D MCH 27.3 MCHC 32.1 RDW 15.7 H Plt Count 289 MPV 9.3 Gran % 66.5 Lymph % (Auto) 21.0 L [place] % (Auto) 10.1 H Eos % (Auto) 2.3 Baso % (Auto) 0.1 Gran # 4.70 Lymph # (Auto) 1.5 [place] # (Auto) 0.7 H Eos # (Auto) 0.2 Baso # (Auto) 0.01 PT 11.7 INR 1.02 APTT 27.7 Sodium 142 Potassium 4.5 Chloride 105 Carbon Dioxide 26 Anion Gap 17 BUN 30 H Creatinine 1.9 H Est GFR ( Amer) 41 Est GFR (Non-Af Amer) 34 Random Glucose 106 Calcium 9.1 Total Bilirubin 0.3 AST 48 ALT 29 Alkaline Phosphatase 81 Troponin I 0.01 Total Protein 7.4 Albumin 4.1 Globulin 3.3 Albumin/Globulin Ratio 1.2 Triglycerides 103 Cholesterol 205 H LDL Cholesterol Direct 128 HDL Cholesterol 49 Blood Type Antibody Screen BBK History Checked 08/31/17 12:14 WBC RBC Hgb Hct MCV MCH MCHC RDW Plt Count MPV Gran % Lymph % (Auto) [place] % (Auto) Eos % (Auto) Baso % (Auto) Gran # Lymph # (Auto) [place] # (Auto) Eos # (Auto) Baso # (Auto) PT INR APTT Sodium Potassium Chloride Carbon Dioxide Anion Gap BUN Creatinine Est GFR ( Amer) Est GFR (Non-Af Amer) Random Glucose Calcium Total Bilirubin AST ALT Alkaline Phosphatase Troponin I Total Protein Albumin Globulin Albumin/Globulin Ratio Triglycerides Cholesterol LDL Cholesterol Direct HDL Cholesterol Blood Type B POSITIVE Antibody Screen Negative BBK History Checked Patient has bt Assessment & Plan (1) Cerebrovascular accident Assessment and Plan: He may have had a new lacunar infarct, or could be worsening of previous stroke due to metabolic causes and dehydration. I recommend the followin. Telemetry 2. MRI of the brain without contrast and MRA of the head/neck without contrast, STAT 3. Fluids with NS bolus of 1 L, followed by 100 mL/hr 4. Aspirin 81 mg now, and continue Eliquis 2.5 mg BID 5. PT/OT eval 6. Continue Statin therapy to keep LDL< 70 7. Echocardiogram with bubble study 8. Case management consult Thank you. Status: Acute Priority: High
--- NOTE | 2017-08-31 14:18 | CT ---
PROCEDURE: CT Abdomen and Pelvis without intravenous contrast HISTORY: right leg and back pain COMPARISON: 01/22/2017 CT TECHNIQUE: Without contrast. Contrast Dose: Radiation dose: Total exam DLP = Total exam DLP = 516 mGy-cm. This CT exam was performed using one or more of the following dose reduction techniques: Automated exposure control, adjustment of the mA and/or kV according to patient size, and/or use of iterative reconstruction technique. FINDINGS: LOWER THORAX: Unremarkable. LIVER: Unremarkable. No gross lesion or ductal dilatation. GALLBLADDER AND BILE DUCTS: Unremarkable. PANCREAS: Unremarkable. No gross lesion or ductal dilatation. SPLEEN: Unremarkable. ADRENALS: Unremarkable. No mass. KIDNEYS AND URETERS: Unremarkable. No hydronephrosis. No solid mass. Bilateral renal stones. VASCULATURE: Unremarkable. No aortic aneurysm. BOWEL: Unremarkable. No obstruction. No gross mural thickening. There are bilateral inguinal hernias. The right-sided hernia contains fat and measures 27 x 38 mm. The left-sided hernia contains a segment of the sigmoid colon. There is no associated obstruction. This hernia measures 45 x 69 mm. Findings are unchanged APPENDIX: Unremarkable. Normal appendix. PERITONEUM: Unremarkable. No free fluid. No free air. LYMPH NODES: Unremarkable. No enlarged lymph nodes. BLADDER: Unremarkable. REPRODUCTIVE: Unremarkable. BONES: No acute fracture. OTHER FINDINGS: None. IMPRESSION: There are bilateral inguinal hernias. The right-sided hernia contains fat and measures 27 x 38 mm. The left-sided hernia contains a segment of the sigmoid colon. There is no associated obstruction. This hernia measures 45 x 69 mm. Findings are unchanged
--- NOTE | 2017-08-31 14:43 | CP.PCM.HP ---
History of Present Illness - History of Present Illness History of Present Illness: H&P for Dr. Love's service - Magda Barroso PGY2 cc: weakness HPI: Patient is an 87-year-old male with past medical history of atrial fibrillation, HTN, Gout, CVA 2013 that presented with right lower extremity weakness. He reported that he first noticed his weakness in the morning and was last known to be at his baseline the night prior. He was unable to ambulate and had noted slurred speech per family which prompted visit to [facility]. In the ED, a code stroke was called. CT Head revealed no acute intracranial abnormalities however he was deemed to not be a candidate for tPA due to length of time outside the treatment window as well as being on eliquis. He had reported returning from [place] yesterday morning and was away for approximately one month during which time he had difficulty taking his scheduled medications. He denied chest pain, palpitations, SOB, abdominal pain, nausea, vomiting, fever, chills, cough. 12point ROS as per HPI above otherwise negative PMHx: DM, HTN, Gout, CVA 2013: left thalamus lacunar infarct PSHx: Cataract sx Allergies: NKDA Family Hx: HTN, DM Social Hx: Denies tobacco, alcohol and illicit drug use, Retired, used to work for the [employer] Present on Admission - Present on Admission Any Indicators Present on Admission: No Past Patient History - Infectious Disease Hx of Infectious Diseases: None - Tetanus Immunizations Tetanus Immunization: Unknown - Past Medical History & Family History Past Medical History?: Yes - Past Social History Smoking Status: Never Smoked - CARDIAC Hx Cardiac Disorders: Yes Hx Hypertension: Yes - PULMONARY Hx Chronic Obstructive Pulmonary Disease (COPD): No Hx Pneumonia: No - NEUROLOGICAL HX Cerebrovascular Accident: Yes (11/13/2013) - HEENT Hx HEENT Problems: (RX GLASSES) - RENAL Hx Renal Failure: No - ENDOCRINE/METABOLIC Hx Diabetes Mellitus Type 2: Yes - HEMATOLOGICAL/ONCOLOGICAL Hx Blood Disorders: No - INTEGUMENTARY Hx Dermatological Problems: No - MUSCULOSKELETAL/RHEUMATOLOGICAL Hx Arthritis: (Gout) - GASTROINTESTINAL Hx Gastroesophageal Reflux: No - GENITOURINARY/GYNECOLOGICAL Hx Genitourinary Disorders: Yes Hx Prostate Cancer: Yes - PSYCHIATRIC Hx Psychophysiologic Disorder: No Hx Substance Use: No - SURGICAL HISTORY Other/Comment: b/l eye surgery - ANESTHESIA Hx Anesthesia: Yes Hx Anesthesia Reactions: No Hx Malignant Hyperthermia: No Meds Allergies/Adverse Reactions: Allergies Allergy/AdvReac Type Severity Reaction Status Date / Time No Known Allergies Allergy Verified 08/31/17 11:33 Physical Exam - Constitutional Appears: No Acute Distress - Head Exam Head Exam: ATRAUMATIC, NORMOCEPHALIC - Eye Exam Eye Exam: EOMI, PERRL - ENT Exam ENT Exam: Mucous Membranes Moist - Respiratory Exam Respiratory Exam: absent: Rales, Rhonchi, Wheezes - Cardiovascular Exam Cardiovascular Exam: +S1, +S2. absent: Gallop, Rubs - GI/Abdominal Exam GI & Abdominal Exam: Soft. absent: Distended, Firm, Guarding, Rebound, Tenderness - Neurological Exam Neurological exam: Alert, Oriented x3 Additional comments: right lower extremity motor strength 3/5 sensation intact throughout CN2-12 grossly intact EOMI PERRL gait deferred - Psychiatric Exam Psychiatric exam: Normal Affect, Normal Mood - Skin Skin Exam: Dry, Intact, Normal Color, Warm Results - Vital Signs Recent Vital Signs: Last Vital Signs Temp 98.3 F 08/31/17 13:17 Pulse 79 08/31/17 13:17 Resp 18 08/31/17 13:17 BP 167/89 H 08/31/17 13:17 Pulse Ox 99 08/31/17 13:17 - Labs Result Diagrams: 08/31/17 12:14 08/31/17 12:14 Labs: Laboratory Results - last 24 hr 08/31/17 08/31/17 08/31/17 12:14 12:14 12:14 WBC 7.1 RBC 4.11 Hgb 11.2 L Hct 34.9 L MCV 84.9 D MCH 27.3 MCHC 32.1 RDW 15.7 H Plt Count 289 MPV 9.3 Gran % 66.5 Lymph % (Auto) 21.0 L Dubois % (Auto) 10.1 H Eos % (Auto) 2.3 Baso % (Auto) 0.1 Gran # 4.70 Lymph # (Auto) 1.5 Dubois # (Auto) 0.7 H Eos # (Auto) 0.2 Baso # (Auto) 0.01 PT 11.7 INR 1.02 APTT 27.7 Sodium 142 Potassium 4.5 Chloride 105 Carbon Dioxide 26 Anion Gap 17 BUN 30 H Creatinine 1.9 H Est GFR ( Amer) 41 Est GFR (Non-Af Amer) 34 Random Glucose 106 Calcium 9.1 Total Bilirubin 0.3 AST 48 ALT 29 Alkaline Phosphatase 81 Troponin I 0.01 Total Protein 7.4 Albumin 4.1 Globulin 3.3 Albumin/Globulin Ratio 1.2 Triglycerides 103 Cholesterol 205 H LDL Cholesterol Direct 128 HDL Cholesterol 49 Blood Type Antibody Screen BBK History Checked 08/31/17 12:14 WBC RBC Hgb Hct MCV MCH MCHC RDW Plt Count MPV Gran % Lymph % (Auto) Dubois % (Auto) Eos % (Auto) Baso % (Auto) Gran # Lymph # (Auto) Dubois # (Auto) Eos # (Auto) Baso # (Auto) PT INR APTT Sodium Potassium Chloride Carbon Dioxide Anion Gap BUN Creatinine Est GFR ( Amer) Est GFR (Non-Af Amer) Random Glucose Calcium Total Bilirubin AST ALT Alkaline Phosphatase Troponin I Total Protein Albumin Globulin Albumin/Globulin Ratio Triglycerides Cholesterol LDL Cholesterol Direct HDL Cholesterol Blood Type B POSITIVE Antibody Screen Negative BBK History Checked Patient has bt Assessment & Plan - Assessment and Plan (Free Text) Plan: 87yo male with history of afib, HTN, CVA presents with right lower extremity weakness concerning for CVA 1. Right lower extremity weakness likely secondary to CVA -CT Head revealed no acute intracranial abnormalities -Outside IV tPA window and also is on eliquis for afib -MRI of the brain without contrast and MRA of the head/neck without contrast, STAT -IVF hydration as ordered -Aspirin 81 mg now and continue Eliquis 2.5 mg BID -Continue statin therapy to keep LDL < 70 as per neuro recommendations -Echocardiogram with bubble study pending -PT/OT eval -Telemetry monitoring -A1c, Lipid panel pending -Neurochecks q4h -HOB > 30' -Swallow eval -NPO diet -Brain MRI on 11/23/13 - Small lacunar infarcts in left thalamus -Carotid Duplex 11/23/13 - Bilateral 20-39% proximal ICA stenosis -ECHO 11/24/13 - Normal Systolic EF. Mod aortic regurgitation. Mild Mitral Regurg , Mild Tricuspid regurg. Mild Pulm HTN. Severe Diastolic dysfunction -Neuro consulted - Dr. Lozada 2. Atrial fibrillation -EKG revealed NSR with no acute ST-T wave changes -Continue eliquis as ordered 3. Hyperlipidemia -Continue lipitor 40mg PO daily 4. GI/DVT prophylaxis -Protonix/SCD's/Eliquis Patient seen and case discussed/reviewed with attending, Dr. Love
[2017-08-31] MEDS ORDERED: Ergocalciferol 50,000 Intl Units Cap PO SCH ×2 (14:45)
--- NOTE | 2017-08-31 14:59 | MRI ---
PROCEDURE: MRI BRAIN WITHOUT CONTRAST HISTORY: r/o cva COMPARISON: MRI in 01/2015 TECHNIQUE: Multiplanar, multisequence MR images of the brain were obtained without intravenous contrast enhancement. FINDINGS: HEMORRHAGE: None DWI: No evidence of an acute or early subacute infarction. BRAIN PARENCHYMA: No mass effect or edema. Chronic microvascular changes are seen in the periventricular white matter. There is also some white matter encephalomalacia in the right parietal lobe. Microvascular changes are also seen in the basal ganglia. These findings are unchanged VENTRICLES: Unremarkable. No hydrocephalus. CRANIUM: Unremarkable. ORBITS: Grossly unremarkable. PARANASAL SINUSES/MASTOIDS: Clear VASCULAR SYSTEM: Skull base flow voids intact. OTHER FINDINGS: None. IMPRESSION: Chronic microvascular changes. There are no acute intracranial findings
--- NOTE | 2017-08-31 15:07 | MRI ---
PROCEDURE: Magnetic Resonance Angiography Brain HISTORY: r/o cva COMPARISON: None available. TECHNIQUE: 3D time of flight MR angiography of the intracranial arteries was performed. Rotating maximum intensity projection images were generated. FINDINGS: INTERNAL CAROTID ARTERIES: Unremarkable. The skull base, petrous, cavernous and supraclinoid segments are bilaterally widely patient. ANTERIOR CEREBRAL ARTERIES: Unremarkable. A1 and A2 segments are widely patent. Smaller distal branches unremarkable, as visualized. MIDDLE CEREBRAL ARTERIES: Unremarkable. M1 and M2 segments are widely patent. Perisylvian branches grossly symmetric. POSTERIOR CIRCULATION: Basilar Artery: Unremarkable. Distal Vertebral Arteries: Unremarkable. Posterior Cerebral Arteries: Unremarkable. Posterior Inferior Cerebellar Arteries: Unremarkable. ANEURYSM/ VASCULAR MALFORMATIONS: None. OTHER FINDINGS: None. IMPRESSION: Unremarkable MR angiography of the brain.
[2017-08-31 17:33] LABS: FREE T4 1.32 ng/dL (0.78-2.19); T4 6.8 ug/dL (5.5-11.0)
[2017-08-31] MEDS ORDERED: POLYETHYLENE GLYCOL 3350 17 GM/Dose PACKET PO SCH (18:00)
[2017-08-31] MEDS: POLYETHYLENE GLYCOL 3350 17 GM/Dose PACKET PO SCH (18:26)
--- NOTE | 2017-08-31 20:11 | CP.PCM.CON ---
History of Present Illness - History of Present Illness History of Present Illness: Surgery consult: Hernia HPI- Pt. is a 87 y.o male with past medical history of atrial fibrillation, HTN, DM, Gout, CVA 2013, dementia who presented with right lower extremity weakness. According to patient's family, he was found to have slurred speech and right- sided weakness and brought him in for evaluation. A stroke workup was completed in ED and pt. was admitted. Surgery was consulted for bilateral inginal hernias found on abdominal and pelvic CT. Complete HPI and ROS unattainable due to patient's dementia and inability to answer questions. History taken from chart. PMH: DM, HTN, Gout, CVA 2013: left thalamus lacunar infarct, Dementia PSHx: Cataract sx Allergies: NKDA Family Hx: HTN, DM Social Hx: Denies tobacco, alcohol and illicit drug use, Retired, used to work for the [employer] Past Patient History - Infectious Disease Hx of Infectious Diseases: None - Tetanus Immunizations Tetanus Immunization: Unknown - Past Medical History & Family History Past Medical History?: Yes - Past Social History Smoking Status: Never Smoked - CARDIAC Hx Cardiac Disorders: Yes Hx Hypertension: Yes - PULMONARY Hx Chronic Obstructive Pulmonary Disease (COPD): No Hx Pneumonia: No - NEUROLOGICAL HX Cerebrovascular Accident: Yes (11/13/2013) - HEENT Hx HEENT Problems: (RX GLASSES) - RENAL Hx Renal Failure: No - ENDOCRINE/METABOLIC Hx Diabetes Mellitus Type 2: Yes - HEMATOLOGICAL/ONCOLOGICAL Hx Blood Disorders: No - INTEGUMENTARY Hx Dermatological Problems: No - MUSCULOSKELETAL/RHEUMATOLOGICAL Hx Arthritis: (Gout) - GASTROINTESTINAL Hx Gastroesophageal Reflux: No - GENITOURINARY/GYNECOLOGICAL Hx Genitourinary Disorders: Yes Hx Prostate Cancer: Yes - PSYCHIATRIC Hx Psychophysiologic Disorder: No Hx Substance Use: No - SURGICAL HISTORY Other/Comment: b/l eye surgery - ANESTHESIA Hx Anesthesia: Yes Hx Anesthesia Reactions: No Hx Malignant Hyperthermia: No Meds Allergies/Adverse Reactions: Allergies Allergy/AdvReac Type Severity Reaction Status Date / Time No Known Allergies Allergy Verified 08/31/17 17:16 - Medications Medications: Current Medications Acetaminophen (Tylenol 325mg Tab) 650 mg PO Q6 PRN PRN Reason: TEMP>=99.5F Acetaminophen (Tylenol 650 Mg Supp) 650 mg RC Q6H PRN PRN Reason: TEMP>=99.5F Apixaban (Eliquis) 2.5 mg PO BID [facility] PRN Reason: Protocol Last Admin: 08/31/17 18:25 Dose: 2.5 mg Aspirin (Ecotrin) 81 mg PO DAILY [facility] Atorvastatin Calcium (Lipitor) 40 mg PO DIN [facility] Last Admin: 08/31/17 17:09 Dose: Not Given Atorvastatin Calcium (Lipitor) 40 mg PO 1800 [facility] Last Admin: 08/31/17 18:26 Dose: 40 mg Docusate Sodium (Colace) 100 mg PO TID [facility] Ergocalciferol (Drisdol 50,000 Intl Units Cap) 1 cap PO Q7D [facility] Last Admin: 08/31/17 18:25 Dose: 1 cap Folic Acid (Folic Acid) 1 mg PO DAILY [facility] Sodium Chloride (Sodium Chloride 0.9%) 1,000 mls @ 100 mls/hr IV .Q10H [facility] Last Admin: 08/31/17 12:31 Dose: 100 mls/hr Insulin Human Lispro (Humalog Med) 0 units SC AC [facility] PRN Reason: Protocol Ondansetron HCl (Zofran Inj) 4 mg IVP Q4H PRN PRN Reason: Nausea/Vomiting Pantoprazole Sodium (Protonix Ec Tab) 40 mg PO 0600 [facility] Polyethylene Glycol (Miralax) 17 gm PO BID [facility] Last Admin: 08/31/17 18:26 Dose: 17 gm Physical Exam - Constitutional Appears: Confused - Head Exam Head Exam: NORMOCEPHALIC - Eye Exam Eye Exam: EOMI, Normal appearance, PERRL Pupil Exam: NORMAL ACCOMODATION, PERRL - ENT Exam ENT Exam: Mucous Membranes Moist, Normal Exam - Neck Exam Neck exam: Positive for: Normal Inspection - Respiratory Exam Respiratory Exam: Clear to Auscultation Bilateral, NORMAL BREATHING PATTERN - Cardiovascular Exam Cardiovascular Exam: REGULAR RHYTHM - GI/Abdominal Exam GI & Abdominal Exam: Hernia, Normal Bowel Sounds, Soft. absent: Distended, Firm , Guarding, Mass, Rebound, Rigid, Tenderness - Rectal Exam Rectal Exam: NORMAL INSPECTION - Exam Additional comments: Examined both L and R inginal region, no evidence of masses. Pt. also denied pain in both regions and unable to follow commands (cough to examine possible protusion of hernia). - Neurological Exam Neurological exam: Alert, CN II-XII Intact, Normal Gait, Oriented x3, Reflexes Normal - Psychiatric Exam Psychiatric exam: Normal Affect, Normal Mood - Skin Skin Exam: Dry, Intact, Normal Color, Warm Results - Vital Signs Recent Vital Signs: Last Vital Signs Temp 98.2 F 08/31/17 18:00 Pulse 75 08/31/17 18:00 Resp 17 08/31/17 18:00 BP 186/87 H 08/31/17 18:00 Pulse Ox 98 08/31/17 15:08 - Labs Result Diagrams: 09/02/17 07:40 09/02/17 07:40 Labs: Laboratory Results - last 24 hr 08/31/17 08/31/17 08/31/17 16:30 16:30 16:30 POC Glucose (mg/dL) Uric Acid 7.7 Troponin I < 0.01 Free T4 1.32 Thyroxine (T4) 6.8 TSH 3rd Generation 4.13 08/31/17 16:54 POC Glucose (mg/dL) 88 Uric Acid Troponin I Free T4 Thyroxine (T4) TSH 3rd Generation Assessment & Plan - Assessment and Plan (Free Text) Assessment: 87 y.o male w/ bilateral inginal hernias: no obstructive sx. No skin changes , no pain. CT bowel containing L inguinal hernia. Plan: Asymptomatic Pt is poor surgical candidate Elective out pt surgery if pt wishes to repair No immediate surgical intervention at this time Discussed with [place] w/ Dr. Mac
[2017-08-31] MEDS ORDERED: Pneumococcal 23-Valent Vaccine IM ONE (22:26)
[2017-09-01 01:58] LABS: URINE BILIRUBIN NEGATIVE (NEGATIVE); URINE BLOOD TRACE-INTACT (NEGATIVE); URINE GLUCOSE (UA) NEGATIVE (NEGATIVE); URINE LEUKOCYTE ESTERASE NEGATIVE Leu/uL (NEGATIVE); URINE PROTEIN 100 mg/dL (<30 mg/dL); URINE UROBILINOGEN 0.2 E.U./dL (<1 E.U./dL)
[2017-09-01 02:12] LABS: URINE APPEARANCE SL CLOUDY (CLEAR); URINE COLOR YELLOW (YELLOW)
[2017-09-01 02:14] LABS: URINE BACTERIA MOD (NEG); URINE RBC 0 - 2 /hpf (0-2); URINE WBC NEGATIVE /hpf (0-6)
[2017-09-01] MEDS ORDERED: Pantoprazole 40 mg EC Tab PO SCH (06:00)
[2017-09-01] MEDS: Pantoprazole 40 mg EC Tab PO SCH (06:15)
[2017-09-01] MEDS: Sodium Chloride 0.9% 1,000 ML IV SCH (06:15)
[2017-09-01 07:37] LABS: BASO # 0.01 K/mm3 (0.0-2.0); BASO % 0.2 % (0.0-3.0); EOS # 0.2 (0.0-0.7); EOS % 2.9 % (1.5-5.0); GRAN # 3.96 (1.4-6.5); GRAN % 67.4 % (50.0-68.0); HEMOGLOBIN 9.9 g/dL (14.0-18.0); LYMPH # 1.3 (1.2-3.4); MEAN CELL VOLUME 85.4 fl (80.0-105.0); MEAN CORPUSCULAR HEMOGLOBIN 26.8 pg (25.0-35.0); MEAN CORPUSCULAR HGB CONC 31.4 g/dl (31.0-37.0); MEAN PLATELET VOLUME 9.7 fl (7.0-11.0); MONO # 0.4 (0.1-0.6); MONO % 7.5 % (1.0-6.0); RBC 3.69 10^6/uL (3.5-6.1); RED CELL DISTRIBUTION WIDTH 15.9 % (11.5-14.5); WHITE BLOOD COUNT 5.9 10^3/ul (4.5-11.0)
[2017-09-01 08:03] LABS: ALB/GLOB RATIO 1.1 (1.1-1.8); ALBUMIN 3.3 g/dL (3.0-4.8); BILIRUBIN,DIRECT 0.2 mg/dL (0.0-0.4); CALCIUM 8.3 mg/dL (8.4-10.5); URIC ACID 7.3 mg/dL (3.5-8.5)
[2017-09-01] MEDS: Insulin Lispro (humaLOG) MEDIUM Coverage SC SCH ×3 (08:13→18:07)
--- NOTE | 2017-09-01 08:27 | HP ---
ADDENDUM DATE OF EXAM: 08/31/2017 Please refer to the detailed history and physical examination done by the hospital medical assistant for complete details and physical examination. HISTORY OF PRESENT ILLNESS: Patient is an 87-year-old [place] male who has just returned from [place] yesterday after a long flight. Today, patient was brought into the emergency room by the patient's daughter and the granddaughter. Patient was noted last night and this morning with slurred speech and right-sided drift and also had weakness of the right side. Patient was also found to be the right side by the granddaughter. Also had weakness of the right side and slurred speech. REVIEW OF SYSTEMS: A 13-system review was done, pertinent positive and negative dictated above. Patient was examined in room 272. Patient's vital signs, diagnostic data reviewed. Patient's detailed history and physical examination by the hospital medical assistant is reviewed. IMPRESSION: 1. Dysarthria. 2. Right-sided weakness. 3. Hypertension. 4. Normocytic anemia. 5. Chronic kidney disease, stage III. 6. Hypercholesterolemia, elevated low density lipoprotein. 7. History of atrial fibrillation, on Eliquis. 8. Chronic constipation. 9. Hypovitaminosis D. 10. Insulin-requiring diabetes mellitus. 11. Hyperuricemia. 12. Cerebral cortical atrophy of the brain. 13. High right parietal old infarct. 14. Chronic microvascular ischemic disease of the brain. 15. Bilateral basal ganglia lacunar infarct and old right thalamic lacunar infarct. 16. Bilateral inguinal hernia, left more than the right with left inguinal hernia containing sigmoid colon. 17. Right parietal lobe encephalomalacia with microvascular ischemic changes of the basal ganglia. 18. History of atrial fibrillation. 19. Most likely cerebrovascular accident with right-sided weakness and hemiparesis (resolving) with dysarthria. PLAN: At this time, patient is admitted to telemetry. Neuro checks ordered. Speech therapy, swallow evaluation, physical therapy, occupational therapy have been ordered. Thyroid panel, vitamin D, lipid panel ordered. Repeat troponin ordered. Consultations; Neurology, Cardiology, TCU eval, social service referral. Current medications; Colace 100 three times a day, Drisdol 50,000 weekly, daily, Eliquis 2.5 twice a day, folic acid 1 mg daily, Lipitor 40 mg daily, MiraLax 17 twice a day, Protonix 40 mg daily, , Tylenol p.r.n., Zofran 4 IV every 4 p.r.n. Chest PT, oxygen 2 liters. Echo with Doppler study ordered as recommended by Neurology. Patient will be ordered heart-healthy diet. Patient will be on consistent carbohydrate heart-healthy diet. Out of bed, fingerstick blood sugar, neuro checks, seizure precaution, SCDs and ÁLVARO stocking, occupational therapy, physical therapy ordered. Fingerstick blood sugar before meals and at bedtime ordered. Patient's condition, diagnoses, management, treatment plan, further diagnostic therapeutic intervention discussed and explained to the patient and the patient's [id number] at length. All questions and concerns answered, which they acknowledged and understood. Dictated and electronically signed, not read. Clinton Love MD
[2017-09-01] MEDS: POLYETHYLENE GLYCOL 3350 17 GM/Dose PACKET PO SCH ×2 (09:01→18:07)
--- NOTE | 2017-09-01 10:25 | CP.PCM.PN ---
Subjective - Date & Time of Evaluation Date of Evaluation: 09/01/17 Time of Evaluation: 10:24 - Subjective Subjective: Patient seen and examined at bedside .Per nursing no acute events occurred overnight. ROS unable to be obtained due to patient's current condition. Objective - Vital Signs/Intake and Output Vital Signs (last 24 hours): Temp Pulse Resp BP Pulse Ox 99.5 F 79 20 141/98 H 96 09/01/17 06:00 09/01/17 06:00 09/01/17 06:00 09/01/17 06:00 09/01/17 06:00 Intake and Output: 09/01/17 09/01/17 06:59 18:59 Intake Total 1320 Output Total 700 Balance 620 - Medications Medications: Current Medications Acetaminophen (Tylenol 325mg Tab) 650 mg PO Q6 PRN PRN Reason: TEMP>=99.5F Acetaminophen (Tylenol 650 Mg Supp) 650 mg RC Q6H PRN PRN Reason: TEMP>=99.5F Apixaban (Eliquis) 2.5 mg PO BID [facility] PRN Reason: Protocol Last Admin: 09/01/17 09:01 Dose: 2.5 mg Aspirin (Ecotrin) 81 mg PO DAILY [facility] Last Admin: 09/01/17 09:01 Dose: 81 mg Atorvastatin Calcium (Lipitor) 40 mg PO DIN [facility] Last Admin: 08/31/17 17:09 Dose: Not Given Atorvastatin Calcium (Lipitor) 40 mg PO 1800 [facility] Last Admin: 08/31/17 18:26 Dose: 40 mg Clonidine HCl (Catapres) 0.1 mg PO Q6H PRN PRN Reason: FOR SBP>=170&/OR DBP>=100 MMHG Docusate Sodium (Colace) 100 mg PO TID [facility] Last Admin: 09/01/17 09:01 Dose: 100 mg Ergocalciferol (Drisdol 50,000 Intl Units Cap) 1 cap PO Q7D [facility] Last Admin: 08/31/17 18:25 Dose: 1 cap Folic Acid (Folic Acid) 1 mg PO DAILY [facility] Last Admin: 09/01/17 09:01 Dose: 1 mg Sodium Chloride (Sodium Chloride 0.9%) 1,000 mls @ 100 mls/hr IV .Q10H [facility] Last Admin: 09/01/17 06:15 Dose: 100 mls/hr Insulin Human Lispro (Humalog Med) 0 units SC AC [facility] PRN Reason: Protocol Last Admin: 09/01/17 08:13 Dose: Not Given Ondansetron HCl (Zofran Inj) 4 mg IVP Q4H PRN PRN Reason: Nausea/Vomiting Pantoprazole Sodium (Protonix Ec Tab) 40 mg PO 0600 [facility] Last Admin: 09/01/17 06:15 Dose: 40 mg Polyethylene Glycol (Miralax) 17 gm PO BID [facility] Last Admin: 09/01/17 09:01 Dose: 17 gm - Labs Labs: 09/01/17 07:00 09/01/17 07:00 PT 11.7 SECONDS (9.4-12.5) 08/31/17 12:14 INR 1.02 (0.93-1.08) 08/31/17 12:14 APTT 27.7 Seconds (25.1-36.5) 08/31/17 12:14 - Head Exam Head Exam: ATRAUMATIC, NORMAL INSPECTION, NORMOCEPHALIC - Eye Exam Eye Exam: EOMI - ENT Exam ENT Exam: Mucous Membranes Moist - Respiratory Exam Respiratory Exam: NORMAL BREATHING PATTERN - Cardiovascular Exam Cardiovascular Exam: REGULAR RHYTHM - Extremities Exam Extremities Exam: Full ROM - Back Exam Back Exam: NORMAL INSPECTION - Neurological Exam Neurological Exam: Altered - Psychiatric Exam Psychiatric exam: Normal Affect, Normal Mood - Skin Skin Exam: Dry, Intact Assessment and Plan - Assessment and Plan (Free Text) Assessment: 87 y.o male w/ bilateral inginal hernias.
--- NOTE | 2017-09-01 10:42 | CARD ---
APPROVED REPORT EKG Measurement Heart [id number] CT [id number] <Conclusion> Normal sinus rhythm Somatic Tremors
--- NOTE | 2017-09-01 10:53 | CARD ---
APPROVED REPORT EKG Measurement Heart [id number] NM [id number] [id number] <Conclusion> Normal sinus rhythm Normal ECG
--- NOTE | 2017-09-01 12:05 | US ---
PROCEDURE: Bilateral carotid artery duplex ultrasound HISTORY: Carotid stenosis CVA PHYSICIAN(S): Prince Way MD. TECHNIQUE: Duplex sonography and color-flow Doppler were used to evaluate the carotid bifurcations and limited segments of the vertebral arteries bilaterally. FINDINGS: The exam is limited by tortuous vessels There is mild to moderate smooth heterogeneous plaque noted at the carotid bifurcations bilaterally. The peak systolic velocity in the proximal right internal carotid artery is 128 cm/sec. This corresponds to a 40-59 percent proximal right ICA stenosis. Normal systolic velocities are noted in the proximal right external carotid artery. There is antegrade flow in the large right vertebral artery. The peak systolic velocity in the proximal left internal carotid artery is 79cm/sec. This corresponds to a 20 to 39% proximal left ICA stenosis. Normal systolic velocities are noted in the proximal left external carotid artery. There is blunted antegrade flow in the atretic left vertebral artery. IMPRESSION: 1. 40-59 percent proximal right ICA stenosis 2. 20-39 percent proximal left ICA stenosis 3. Antegrade flow in both vertebral arteries. The left vertebral artery is atretic
--- NOTE | 2017-09-01 17:16 | CON ---
DATE: 09/01/2017 REASON FOR CONSULTATION: Cardiac evaluation, admitted with possible CVA, right-sided weakness. BRIEF CLINICAL HISTORY: This is an 87-year-old male, , who returned from [place] day before yesterday, brought yesterday by the family because of feeling weakness on the right side and speech slurring. Denies any chest pain, denies any shortness of breath, and denies any palpitation. PAST MEDICAL HISTORY: Significant for diabetes, hypertension, hyperlipidemia, and paroxysmal atrial fibrillation, on Eliquis. PREVIOUS CARDIAC WORKUP: The patient's bilateral carotid duplex 05/31/2016 showed 20% to 30% stenosis. shelter monitor shows episode of atrial fibrillation on 05/31/2016. Previous MRI of the brain showed separate thalamic and occipital cortical infarcts, right parietal and occipital lobe as well, as well as a separate 3 mm acute cortical infarct of right parietal lobe, multiple areas of infarct suggestive of thromboembolic phenomena and atrial fibrillation, the patient was on Eliquis. Last time, echo showed [id number] aortic regurgitation dated 06/01/2016, normal left ventricular function, mild mitral regurgitation. SOCIAL HISTORY: Denies any history of alcohol abuse. CURRENT MEDICATIONS: The patient is taking at home MiraLax, insulin, cholecalciferol, atorvastatin, Eliquis, and allopurinol. REVIEW OF SYSTEMS: As per HPI. PHYSICAL EXAMINATION: VITAL SIGNS: Temperature afebrile, heart rate 79, blood pressure 141/98. HEENT: PERRLA. Extraocular muscles intact. NECK: Supple. No carotid bruits or thyromegaly. CHEST: Clear to auscultation. HEART: S1 and S2 regular. ABDOMEN: Soft. EXTREMITIES: Clubbing and cyanosis negative. LABORATORY DATA: EKG shows normal sinus, no acute ST-T changes noted. Blood workup: WBC 5.8, hemoglobin 9.9, hematocrit 31.5, platelet count 268. Chemistry showed sodium 144, potassium 4.3, chloride 110, carbon dioxide 24, anion gap of 14. Troponin 0.01, negative. MRI of the brain shows chronic microvascular changes. No acute intracranial finding noted. IMPRESSION: Acute transient ischemic attack versus cerebrovascular accident, history of paroxysmal atrial fibrillation, diabetes, hypertension, hyperlipidemia, mitral regurgitation, aortic regurgitation, gout, cerebrovascular accident in the past. RECOMMENDATIONS: Continue Eliquis. Lipid profile, TSH, hemoglobin A1c, echo to asses LV function. We will follow with you. Thank you, Dr. Love, for providing us the opportunity in taking care of the patient, Etienne Dixon. Interim, continue Eliquis, continue atorvastatin. We will add lipid profile and TSH if not done yesterday. David Carnes MD
--- NOTE | 2017-09-01 18:37 | CARD ---
APPROVED REPORT EXAM: Two-dimensional and M-mode echocardiogram with Doppler and color Doppler. INDICATION CVA/BUBBLE STUDY 2D DIMENSIONS Left Atrium (2D)4.9 (1.6-4.0cm)IVSd1.2 (0.7-1.1cm) LVDd5.3 (3.9-5.9cm)PWd1.2 (0.7-1.1cm) LVDs3.5 (2.5-4.0cm)FS (%) 33.7 % LVEF (%)62.0 (>50%) M-Mode DIMENSIONS Aortic Root3.30 (2.2-3.7cm)Aortic Cusp Exc.1.80 (1.5-2.0cm) Aortic Valve AoV Peak Gjnosbbn136.0cm/sAoV VTI65.1cmAO Peak GR.41mmHg LVOT Peak Izwesznf025.0cm/sLVOT VTI23.70cmAO Mean GR.22mmHg AI P 1/2 [id number] Mitral Valve MV E Dbnywisq336.0cm/sMV A Kqwuerzk13.8cm/sE/A ratio1.1 TDI Lateral E' Peak V13.50cm/sMedial E' Peak V7.41cm/sE/Lateral E'7.9 E/Medial E'14.3 Pulmonary Valve PV Peak Ocwiqjfr62.9cm/sPV Peak Grad.3mmHg Tricuspid Valve TR Peak Vfmmvxsd669qg/sRAP ZHISFOKP49exLlZP Peak Gr.38mmHg DSLP09kgEw LEFT VENTRICLE The left ventricle is normal size. There is mild concentric left ventricular hypertrophy. The left ventricular function is normal.EF-60-65% There is normal LV segmental wall motion. Transmitral Doppler flow pattern is Grade II-pseudonormal filling dynamics. No left ventricle thrombus noted on this study. There is no ventricular septal defect visualized. There is no left ventricular aneurysm. RIGHT VENTRICLE The right ventricle is normal size. There is normal right ventricular wall thickness. The right ventricular systolic function is normal. ATRIA The left atrium is mild to moderately dilated. The right atrium size is normal. The interatrial septum is intact with no evidence for an atrial septal defect, By color flow and Bubble study. AORTIC VALVE The aortic valve is calcified and displays decreased opening. There is mild to moderate aortic regurgitation. Aortic sclerosis VS Mild There is no aortic valvular vegetation. MITRAL VALVE The mitral valve is thickened but opens well. Mitral annular calcification is mild to moderate. Mitral regurgitation is mild. There is no mitral valve stenosis. There is no evidence of mitral valve prolapse. TRICUSPID VALVE The tricuspid valve leaflets are thickened , but open well. There is mild to moderate tricuspid regurgitation.RVSP-48 mmof Hg. There is mild pulmonary hypertension. There is no tricuspid valve stenosis. There is no tricuspid valve prolapse or vegetation. PULMONIC VALVE The pulmonary valve is normal in structure. There is no pulmonic valvular regurgitation. There is no pulmonic valvular stenosis. GREAT VESSELS The aortic root is normal in size. The ascending aorta is normal in size. The pulmonary artery is normal. The IVC is normal in size and collapses >50% with inspiration. PERICARDIAL EFFUSION There is no pleural effusion. There is no pericardial effusion. <Conclusion> The left ventricle is normal size. There is mild concentric left ventricular hypertrophy. The left ventricular function is normal.EF-60-65% There is mild to moderate aortic regurgitation. Aortic sclerosis VS Mild Mitral regurgitation is mild. There is mild to moderate tricuspid regurgitation.RVSP-48 mmof Hg. There is mild pulmonary hypertension. The IVC is normal in size and collapses >50% with inspiration. There is no pericardial effusion. The interatrial septum is intact with no evidence for an atrial septal defect, By color flow and Bubble study. No vegetation or thrombus noted.
--- NOTE | 2017-09-01 20:08 | MRI ---
EXAM: MR Angiography Neck Without Intravenous Contrast EXAM DATE/TIME: 09/01/2017 3:27 PM CLINICAL HISTORY: The patient age is 87 years old and is male; Signs and symptoms; Other: Cva/stenosis; Additional info: Cva/carotid stenosis Facility exam id and description: Mri mra necks mra neck without contrast TECHNIQUE: Magnetic resonance angiography images of the neck without intravenous contrast. COMPARISON: MRA HEAD WITHOUT CONTRAST 2017-08-31 14:30 FINDINGS: Right common carotid artery: Artifact limits evaluation of the bilateral common carotid arteries, without occlusion. Right internal carotid artery: There is stenosis of the proximal right internal carotid artery. The degree of stenosis is approximately 60%. Artifact may contribute to this appearance. Flow voids are identified within the bilateral mid internal carotid arteries, likely contributed by artifact, although flow limiting pathology cannot be excluded. Right external carotid artery: There is hemodynamically significant stenosis of the proximal right external carotid artery. Right vertebral artery: A dominant right vertebral artery is identified. There are segments of flow-void within the bilateral vertebral arteries, which may be artifactual or due to decreased flow. Left common carotid artery: See above. Left internal carotid artery: There is no occlusion of the proximal left internal carotid artery. See above. Left external carotid artery: There is abnormal morphology of the proximal left external carotid artery, likely contributed by artifact. Left vertebral artery: See above. Other findings: This study is technically suboptimal. CAROTID STENOSIS REFERENCE USING NASCET CRITERIA: % ICA stenosis = (1 - narrowest ICA diameter/diameter of distal cervical ICA) x 100. Mild - <50% stenosis. Moderate - 50-69% stenosis. Severe - 70-94% stenosis. Near occlusion - 95-99% stenosis. Occluded - 100% stenosis. IMPRESSION: 1. There is stenosis of the proximal right internal carotid artery. The degree of stenosis is approximately 60%. Flow voids are identified within the bilateral mid internal carotid arteries, likely contributed by artifact, although flow limiting pathology cannot be excluded. 2. There is abnormal morphology of the proximal left external carotid artery, likely contributed by artifact. 3. Flow voids are identified within the bilateral mid internal carotid arteries, likely contributed by artifact, although flow limiting pathology cannot be excluded. 4. A dominant right vertebral artery is identified. There are segments of flow-void within the bilateral vertebral arteries, which may be artifactual or due to decreased flow. 5. There is hemodynamically significant stenosis of the proximal right external carotid artery. 6. Correlation with CTA is recommended.
--- NOTE | 2017-09-01 22:57 | CP.PCM.PN ---
Subjective - Date & Time of Evaluation Date of Evaluation: 09/01/17 Time of Evaluation: 14:00 - Subjective Subjective: Mr. Dixon was seen and examined today at bedside. He was pleasant and conversant. He continued to have right side weakness, with slight improvement compared with yesterday's examination. There were no acute events overnight. MRI of the brain showed chronic ischemic changes and previous strokes without any acute infarcts. MRA of the head did not show any significant stenosis, but the MRA of the neck was concerning for right carotid stenosis of about 60%. Objective - Vital Signs/Intake and Output Vital Signs (last 24 hours): Temp Pulse Resp BP Pulse Ox 97.8 F 72 18 158/81 H 96 09/01/17 17:44 09/01/17 18:00 09/01/17 17:44 09/01/17 17:44 09/01/17 06:00 Intake and Output: 09/01/17 09/02/17 18:59 06:59 Intake Total 300 Output Total 600 Balance -300 - Medications Medications: Current Medications Acetaminophen (Tylenol 325mg Tab) 650 mg PO Q6 PRN PRN Reason: TEMP>=99.5F Acetaminophen (Tylenol 650 Mg Supp) 650 mg RC Q6H PRN PRN Reason: TEMP>=99.5F Apixaban (Eliquis) 2.5 mg PO BID [facility] PRN Reason: Protocol Last Admin: 09/01/17 18:07 Dose: 2.5 mg Aspirin (Ecotrin) 81 mg PO DAILY [facility] Last Admin: 09/01/17 09:01 Dose: 81 mg Atorvastatin Calcium (Lipitor) 40 mg PO DIN [facility] Last Admin: 09/01/17 18:07 Dose: 40 mg Atorvastatin Calcium (Lipitor) 40 mg PO 1800 [facility] Last Admin: 09/01/17 18:08 Dose: Not Given Clonidine HCl (Catapres) 0.1 mg PO Q6H PRN PRN Reason: FOR SBP>=170&/OR DBP>=100 MMHG Docusate Sodium (Colace) 100 mg PO TID [facility] Last Admin: 09/01/17 18:07 Dose: 100 mg Ergocalciferol (Drisdol 50,000 Intl Units Cap) 1 cap PO Q7D [facility] Last Admin: 08/31/17 18:25 Dose: 1 cap Folic Acid (Folic Acid) 1 mg PO DAILY [facility] Last Admin: 09/01/17 09:01 Dose: 1 mg Sodium Chloride (Sodium Chloride 0.9%) 1,000 mls @ 100 mls/hr IV .Q10H [facility] Last Admin: 09/01/17 06:15 Dose: 100 mls/hr Insulin Human Lispro (Humalog Med) 0 units SC AC [facility] PRN Reason: Protocol Last Admin: 09/01/17 18:07 Dose: Not Given Ondansetron HCl (Zofran Inj) 4 mg IVP Q4H PRN PRN Reason: Nausea/Vomiting Pantoprazole Sodium (Protonix Ec Tab) 40 mg PO 0600 [facility] Last Admin: 09/01/17 06:15 Dose: 40 mg Polyethylene Glycol (Miralax) 17 gm PO BID [facility] Last Admin: 09/01/17 18:07 Dose: 17 gm - Labs Labs: 09/01/17 07:00 09/01/17 07:00 PT 11.7 SECONDS (9.4-12.5) 08/31/17 12:14 INR 1.02 (0.93-1.08) 08/31/17 12:14 APTT 27.7 Seconds (25.1-36.5) 08/31/17 12:14 - Neurological Exam Neurological Exam: Abnormal Gait, Alert, Awake, CN II-XII Intact, Oriented x3 Neuro motor strength exam: Left Upper Extremity: 4, Right Upper Extremity: 3, Left Lower Extremity: 4, Right Lower Extremity: 3 Assessment and Plan (1) Cerebral ischemia Assessment & Plan: Continue current medications and evaluate for acute rehab transfer. Continue adequate hydration with 2-3 liters of water daily to ensure cerebral perfusion. Status: Acute
[2017-09-02] MEDS: Pantoprazole 40 mg EC Tab PO SCH (07:00)
[2017-09-02 07:54] LABS: BASO # 0.01 K/mm3 (0.0-2.0); BASO % 0.2 % (0.0-3.0); EOS # 0.2 (0.0-0.7); EOS % 2.9 % (1.5-5.0); GRAN # 4.31 (1.4-6.5); GRAN % 68.9 % (50.0-68.0); LYMPH # 1.2 (1.2-3.4); LYMPH % 19.4 % (22.0-35.0); MEAN CELL VOLUME 85.5 fl (80.0-105.0); MEAN CORPUSCULAR HEMOGLOBIN 27.6 pg (25.0-35.0); MEAN CORPUSCULAR HGB CONC 32.3 g/dl (31.0-37.0); MEAN PLATELET VOLUME 9.8 fl (7.0-11.0); MONO # 0.5 (0.1-0.6); MONO % 8.6 % (1.0-6.0); RBC 3.99 10^6/uL (3.5-6.1); RED CELL DISTRIBUTION WIDTH 15.5 % (11.5-14.5); WHITE BLOOD COUNT 6.3 10^3/ul (4.5-11.0)
[2017-09-02 08:14] LABS: ALB/GLOB RATIO 1.2 (1.1-1.8); ALBUMIN 3.6 g/dL (3.0-4.8); BILIRUBIN,DIRECT 0.2 mg/dL (0.0-0.4); CALCIUM 8.6 mg/dL (8.4-10.5)
--- NOTE | 2017-09-02 08:23 | PN ---
DATE: 09/01/2017 LOCATION: The patient is in room 272, bed 1. SUBJECTIVE: The patient is seen lying in the bed. Overnight nurse's notes were reviewed. The patient transiently had some fluctuation of the blood pressure. No other adverse events were documented. The patient was alert, awake, responsive. The patient is seen lying in the bed. PHYSICAL EXAMINATION: VITAL SIGNS: T-max afebrile. Telemetry shows sinus rhythm with some APCs and PVCs. Heart rate 70s, 80s and 90 beats per minute, blood pressure 150/90, 178/94, 178/88, 160/94; respiration 18 to 20, O2 sat a mid to high 90%. HEENT: Head examination normocephalic, atraumatic. HEENT examination shows pinkish pale conjunctivae. Anicteric sclerae. NECK: No neck rigidity. No jugular venous distention. Questionable soft carotid bruit. CHEST: Kyphosis. LUNG: No rales, crackles or wheezing. CARDIOVASCULAR: S1, S2, regular rhythm. Questionable soft systolic murmur, left sternal border, right second intercostal costal space, left second intercostal space. ABDOMEN: Soft. Positive bowel sound. No hepatosplenomegaly noted. GENITALIA: Male. RECTAL: Deferred. EXTREMITIES: Shows trace swelling of the lower extremity. No pitting edema. No calf tenderness. No Homans sign. VASCULAR: Palpated pulses. MUSCULOSKELETAL: As per the body mass index. There is some weakness of the right upper and lower extremity with a right upper motor strength 4+ to 5- over 5 and also in the right lower extremity motor strength is 4+ to 5- over 5. The patient is able to sit down with assistance. DIAGNOSTICS: From 09/01 noted. WBC count is normal, hemoglobin/hematocrit is 10.6, 32.4, platelets are normal. Hemoglobin has dropped a little bit, since the patient has been on IV fluid hydration. Chemistry, 09/01 chemistry was reviewed. Creatinine is now down to 1.4, A1c is 6.4. Thyroid panel, cholesterol, lipid panel was reviewed. Vitamin D 25-hydroxy is less than 12.8. LFTs are within normal limit. The patient's MRI, MRA of the brain was reviewed. IMPRESSION: 1. Most likely and most probable cerebrovascular accident with the right upper and lower extremity hemiparesis (resolving). 2. Dysarthria. 3. Speech dysfunction. 4. History of paroxysmal atrial fibrillation. 5. Normocytic anemia and probably dilutional anemia. 6. Mcm-xvflmmc-yheqwsbaa diabetes mellitus. 7. Transient uncontrolled hypertension. 8. History of hypertension. 9. Type 2 alm-modymzb-oopwbxliq diabetes mellitus. 10. Hypovitaminosis D. 11. Hypercholesterolemia. 12. Deconditioning. 13. Gait dysfunction. 14. Right-sided mild paresis. 15. Proximal atrial fibrillation. 16. Multiple lacunar infarcts of the brain. 17. Parietal lobe , bilateral basal ganglia and thalamic lacunar infarct. 18. 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 PLAN: At this time, the patient has been ordered Cardiology consultation for evaluation of echo with bubble study as per Neurology recommendation. Neurology recommendations were noted as reinforced. The patient has been ordered carotid Doppler. Echo bubble study has been ordered. The patient has been ordered out of bed to chair. Physical therapy, occupational therapy, ambulation therapy, gait training ordered. The patient was seen by a swallowing evaluation, their recommendation was noted. The patient has some mild oropharyngeal dysphagia, altered GI hepatic diet ordered. The patient's carotid Doppler is pending. The patient's echo bubble study is pending. Cardiology evaluation is pending. The patient will be continued on medications as per the MAR. The patient is started on clonidine 0.1 mg p.o. every 6 hours p.r.n. for systolic blood pressure greater than 170 and diastolic blood pressure greater than 100. The patient will be continued on GI prophylaxis. The patient will be continued on insulin sliding scale coverage. The patient will be continued on Lipitor, statins. The patient will be continued on GI prophylaxis. The patient will be continued on out of bed to chair physical therapy, occupational therapy, ambulation therapy, speech therapy, swallowing evaluation ordered. The patient's carotid Doppler results will be followed up. The patient's echo with bubble study results will be followed up when done. The patient's case will be referred to physical therapy for discharge disposition, determination whether the patient will require acute rehab versus subacute rehab depending upon the physical therapy evaluation. The patient's condition, diagnosis, management, treatment plan discussed with the patient's son and the [id number] and granddaughter at length. Dictated and electronically signed, not read. Clinton Love MD [facility] # [id number]
[2017-09-02] MEDS: Insulin Lispro (humaLOG) MEDIUM Coverage SC SCH ×3 (09:17→17:26)
[2017-09-02] MEDS: Sodium Chloride 0.9% 1,000 ML IV SCH ×2 (09:19→23:25)
[2017-09-02] MEDS: POLYETHYLENE GLYCOL 3350 17 GM/Dose PACKET PO SCH ×2 (09:24→17:35)
[2017-09-02] MEDS ORDERED: Sodium Chloride 0.9% 1,000 ML IV SCH (11:00)
--- NOTE | 2017-09-02 11:07 | CP.PCM.PN ---
Subjective - Date & Time of Evaluation Date of Evaluation: 09/02/17 Time of Evaluation: 09:30 - Subjective Subjective: In bed semisitting, sleeping but easily awaken,Denies chest pain, denies shortness of breath Reason for consult and follow up: Cardiac evaluation, admitted for possible CVA , came in due to slurred speech and right side weakness. Seen and examined by me and Dr. Carnes Objective - Vital Signs/Intake and Output Vital Signs (last 24 hours): Temp Pulse Resp BP Pulse Ox 98 F 85 19 140/91 H 98 09/02/17 06:00 09/02/17 06:00 09/02/17 06:00 09/02/17 06:00 09/02/17 00:01 Intake and Output: 09/02/17 09/02/17 06:59 18:59 Intake Total 360 Output Total 2175 Balance -1815 - Medications Medications: Current Medications Acetaminophen (Tylenol 325mg Tab) 650 mg PO Q6 PRN PRN Reason: TEMP>=99.5F Acetaminophen (Tylenol 650 Mg Supp) 650 mg RC Q6H PRN PRN Reason: TEMP>=99.5F Apixaban (Eliquis) 2.5 mg PO BID [facility] PRN Reason: Protocol Last Admin: 09/02/17 09:24 Dose: 2.5 mg Aspirin (Ecotrin) 81 mg PO DAILY [facility] Last Admin: 09/02/17 09:24 Dose: 81 mg Atorvastatin Calcium (Lipitor) 40 mg PO DIN [facility] Last Admin: 09/01/17 18:07 Dose: 40 mg Clonidine HCl (Catapres) 0.1 mg PO Q6H PRN PRN Reason: FOR SBP>=170&/OR DBP>=100 MMHG Docusate Sodium (Colace) 100 mg PO TID [facility] Last Admin: 09/02/17 09:24 Dose: 100 mg Ergocalciferol (Drisdol 50,000 Intl Units Cap) 1 cap PO Q7D [facility] Last Admin: 08/31/17 18:25 Dose: 1 cap Folic Acid (Folic Acid) 1 mg PO DAILY [facility] Last Admin: 09/02/17 09:24 Dose: 1 mg Sodium Chloride (Sodium Chloride 0.9%) 1,000 mls @ 60 mls/hr IV .[id number] [facility] Insulin Human Lispro (Humalog Med) 0 units SC AC [facility] PRN Reason: Protocol Last Admin: 09/02/17 09:17 Dose: Not Given Ondansetron HCl (Zofran Inj) 4 mg IVP Q4H PRN PRN Reason: Nausea/Vomiting Pantoprazole Sodium (Protonix Ec Tab) 40 mg PO 0600 [facility] Last Admin: 09/02/17 07:00 Dose: 40 mg Polyethylene Glycol (Miralax) 17 gm PO BID [facility] Last Admin: 09/02/17 09:24 Dose: 17 gm - Labs Labs: 09/02/17 07:40 09/02/17 07:40 PT 11.7 SECONDS (9.4-12.5) 08/31/17 12:14 INR 1.02 (0.93-1.08) 08/31/17 12:14 APTT 27.7 Seconds (25.1-36.5) 08/31/17 12:14 - Constitutional Appears: No Acute Distress - Head Exam Head Exam: NORMAL INSPECTION - Eye Exam Eye Exam: Normal appearance - Respiratory Exam Respiratory Exam: Clear to Ausculation Bilateral, NORMAL BREATHING PATTERN - Cardiovascular Exam Cardiovascular Exam: REGULAR RHYTHM, +S1, +S2 - GI/Abdominal Exam GI & Abdominal Exam: Soft, Normal Bowel Sounds - Extremities Exam Extremities Exam: Normal Capillary Refill - Neurological Exam Neurological Exam: Alert, Awake - Psychiatric Exam Psychiatric exam: Normal Affect, Normal Mood - Skin Skin Exam: Intact, Normal Color, Warm Assessment and Plan - Assessment and Plan (Free Text) Assessment: A 87 year old male, who just came back from [place] and was brought by family member due to right sided weakness and speech slurring. History of IDDM, hypertension,atrial fibrillation on Eliquis, hyperlipidemia, history of CVA , Plan: ECHO result LVEF 60-65%, mild to moderate aortic regurgitation, mild mitral regurgitation, mild to moderate tricuspid regurgitation (full report in chart) Symptoms TIA versus CVA On Eliquis 2.5 mg BID, ASA 81 mg daily, lipitor 40 mg daily,Catapres 0.1 mg every 6 hours, Continue current medications Continue current treatment Will follow up Plan and treatment discussed with Dr. Carnes
--- NOTE | 2017-09-02 12:51 | CARD ---
APPROVED REPORT EKG Measurement Heart [id number] <Conclusion> Sinus bradycardia with sinus arrhythmia Nonspecific T wave abnormality
--- NOTE | 2017-09-02 19:39 | CP.PCM.CON ---
History of Present Illness - History of Present Illness History of Present Illness: VAscular 87 yo diabetic non-smoker male with ho CVA, Dementia and Afib on Eliquis brought in by his family for slurred speech and R sided weakness. VAcular surgery is consulted to evaluate for R carotid artery stenosis. Patient is poor historian with baseline dementia. [facility] and has been non compliant with his meds while he was away for a month. When he came back he had sudden onset of R LE weakness and difficulty ambulating. Denies vision changes, facial drooping, RIVERA, CP, SOB, abd pain, dysphagia, vertigo, syncopy. Pt was admited for similar sx of CVA in the past and sx improved. Past Patient History - Infectious Disease Hx of Infectious Diseases: None - Tetanus Immunizations Tetanus Immunization: Unknown - Past Medical History & Family History Past Medical History?: Yes - Past Social History Smoking Status: Never Smoked - CARDIAC Hx Cardiac Disorders: Yes Hx Hypertension: Yes - PULMONARY Hx Chronic Obstructive Pulmonary Disease (COPD): No Hx Pneumonia: No - NEUROLOGICAL HX Cerebrovascular Accident: Yes (11/13/2013) - HEENT Hx HEENT Problems: (RX GLASSES) - RENAL Hx Renal Failure: No - ENDOCRINE/METABOLIC Hx Diabetes Mellitus Type 2: Yes - HEMATOLOGICAL/ONCOLOGICAL Hx Blood Disorders: No - INTEGUMENTARY Hx Dermatological Problems: No - MUSCULOSKELETAL/RHEUMATOLOGICAL Hx Arthritis: (Gout) - GASTROINTESTINAL Hx Gastroesophageal Reflux: No - GENITOURINARY/GYNECOLOGICAL Hx Genitourinary Disorders: Yes Hx Prostate Cancer: Yes - PSYCHIATRIC Hx Psychophysiologic Disorder: No Hx Substance Use: No - SURGICAL HISTORY Other/Comment: b/l eye surgery - ANESTHESIA Hx Anesthesia: Yes Hx Anesthesia Reactions: No Hx Malignant Hyperthermia: No Meds Allergies/Adverse Reactions: Allergies Allergy/AdvReac Type Severity Reaction Status Date / Time No Known Allergies Allergy Verified 08/31/17 17:16 - Medications Medications: Current Medications Acetaminophen (Tylenol 325mg Tab) 650 mg PO Q6 PRN PRN Reason: TEMP>=99.5F Acetaminophen (Tylenol 650 Mg Supp) 650 mg RC Q6H PRN PRN Reason: TEMP>=99.5F Apixaban (Eliquis) 2.5 mg PO BID [facility] PRN Reason: Protocol Last Admin: 09/02/17 17:34 Dose: 2.5 mg Aspirin (Ecotrin) 81 mg PO DAILY [facility] Last Admin: 09/02/17 09:24 Dose: 81 mg Atorvastatin Calcium (Lipitor) 40 mg PO DIN [facility] Last Admin: 09/02/17 17:34 Dose: 40 mg Clonidine HCl (Catapres) 0.1 mg PO Q6H PRN PRN Reason: FOR SBP>=170&/OR DBP>=100 MMHG Docusate Sodium (Colace) 100 mg PO TID [facility] Last Admin: 09/02/17 17:38 Dose: 100 mg Ergocalciferol (Drisdol 50,000 Intl Units Cap) 1 cap PO Q7D [facility] Last Admin: 08/31/17 18:25 Dose: 1 cap Folic Acid (Folic Acid) 1 mg PO DAILY [facility] Last Admin: 09/02/17 09:24 Dose: 1 mg Insulin Human Lispro (Humalog Med) 0 units SC AC [facility] PRN Reason: Protocol Last Admin: 09/02/17 17:26 Dose: Not Given Ondansetron HCl (Zofran Inj) 4 mg IVP Q4H PRN PRN Reason: Nausea/Vomiting Pantoprazole Sodium (Protonix Ec Tab) 40 mg PO 0600 [facility] Last Admin: 09/02/17 07:00 Dose: 40 mg Polyethylene Glycol (Miralax) 17 gm PO BID [facility] Last Admin: 09/02/17 17:35 Dose: 17 gm Tamsulosin HCl (Flomax) 0.4 mg PO DAILY [facility] Results - Vital Signs Recent Vital Signs: Last Vital Signs Temp 98 F 09/02/17 18:00 Pulse 70 09/02/17 18:00 Resp 18 09/02/17 18:00 BP 158/93 H 09/02/17 18:00 Pulse Ox 98 09/02/17 00:01 - Labs Result Diagrams: 09/02/17 07:40 09/02/17 07:40 Labs: Laboratory Results - last 24 hr 09/01/17 09/01/17 09/02/17 16:12 21:46 07:40 WBC 6.3 RBC 3.99 Hgb 11.0 L Hct 34.1 L MCV 85.5 MCH 27.6 MCHC 32.3 RDW 15.5 H Plt Count 274 MPV 9.8 Gran % 68.9 H Lymph % (Auto) 19.4 L [place] % (Auto) 8.6 H Eos % (Auto) 2.9 Baso % (Auto) 0.2 Gran # 4.31 Lymph # (Auto) 1.2 [place] # (Auto) 0.5 Eos # (Auto) 0.2 Baso # (Auto) 0.01 Sodium Potassium Chloride Carbon Dioxide Anion Gap BUN Creatinine Est GFR ( Amer) Est GFR (Non-Af Amer) POC Glucose (mg/dL) 89 121 H Random Glucose Calcium Magnesium Total Bilirubin Direct Bilirubin AST ALT Alkaline Phosphatase Total Protein Albumin Globulin Albumin/Globulin Ratio 09/02/17 09/02/17 09/02/17 07:40 07:44 11:01 WBC RBC Hgb Hct MCV MCH MCHC RDW Plt Count MPV Gran % Lymph % (Auto) [place] % (Auto) Eos % (Auto) Baso % (Auto) Gran # Lymph # (Auto) [place] # (Auto) Eos # (Auto) Baso # (Auto) Sodium 145 Potassium 4.4 Chloride 105 Carbon Dioxide 27 Anion Gap 17 BUN 22 H Creatinine 1.4 Est GFR ( Amer) 58 Est GFR (Non-Af Amer) 48 POC Glucose (mg/dL) 99 137 H Random Glucose 110 Calcium 8.6 Magnesium 2.0 Total Bilirubin 0.4 Direct Bilirubin 0.2 AST 44 ALT 32 Alkaline Phosphatase 68 Total Protein 6.8 Albumin 3.6 Globulin 3.2 Albumin/Globulin Ratio 1.2 09/02/17 16:10 WBC RBC Hgb Hct MCV MCH MCHC RDW Plt Count MPV Gran % Lymph % (Auto) [place] % (Auto) Eos % (Auto) Baso % (Auto) Gran # Lymph # (Auto) [place] # (Auto) Eos # (Auto) Baso # (Auto) Sodium Potassium Chloride Carbon Dioxide Anion Gap BUN Creatinine Est GFR ( Amer) Est GFR (Non-Af Amer) POC Glucose (mg/dL) 113 H Random Glucose Calcium Magnesium Total Bilirubin Direct Bilirubin AST ALT Alkaline Phosphatase Total Protein Albumin Globulin Albumin/Globulin Ratio Assessment & Plan - Assessment and Plan (Free Text) Assessment: Symptomatic carotid artery stenosis with focal neurologic deficit: R sided weakness and transient slurred speech. TIA v CVA US: R prox ICA 40-60% peak velocity 128cm/s, L ICA 20-40% MRA: 60% R ICA stenosis Brain MRI: chronic microvascular changes, No acute finding -For men with recently symptomatic carotid stenosis of 50 to 69 percent who have a life expectancy of at least five years, we suggest CEA rather than medical management -We recommend medical management rather than CEA or Carotid stent for patients with symptomatic carotid stenosis that is less than 50 percent -For patients with carotid stenosis and a nondisabling stroke or transient ischemic attack (TIA), we suggest that CEA be performed within two weeks (but not within the first two days) of the last symptomatic event rather than a later time -Older patients may have a greater benefit from CEA than younger patients -Patients with hemispheric TIA have greater benefit from CEA than patients with transient retinal ischemia -Continue w ASA -Recommend antiplatelet therapy -Dr. Da Silva to reassess -Neuro rec -Cardio rec DW Dr. Da Silva
[2017-09-03] MEDS: Pantoprazole 40 mg EC Tab PO SCH (06:39)
[2017-09-03 07:03] LABS: BASO # 0.01 K/mm3 (0.0-2.0); BASO % 0.2 % (0.0-3.0); EOS # 0.2 (0.0-0.7); EOS % 3.8 % (1.5-5.0); GRAN # 4.37 (1.4-6.5); GRAN % 72.7 % (50.0-68.0); HEMOGLOBIN 10.7 g/dL (14.0-18.0); LYMPH # 0.9 (1.2-3.4); LYMPH % 15.6 % (22.0-35.0); MEAN CELL VOLUME 85.4 fl (80.0-105.0); MEAN CORPUSCULAR HGB CONC 31.6 g/dl (31.0-37.0); MEAN PLATELET VOLUME 9.7 fl (7.0-11.0); MONO # 0.5 (0.1-0.6); MONO % 7.7 % (1.0-6.0); RBC 3.97 10^6/uL (3.5-6.1); RED CELL DISTRIBUTION WIDTH 15.5 % (11.5-14.5)
[2017-09-03 07:39] LABS: ALB/GLOB RATIO 1.2 (1.1-1.8); ALBUMIN 3.7 g/dL (3.0-4.8); BILIRUBIN,DIRECT 0.2 mg/dL (0.0-0.4)
--- NOTE | 2017-09-03 07:45 | CP.PCM.PN ---
Subjective - Date & Time of Evaluation Date of Evaluation: 09/03/17 Time of Evaluation: 07:30 - Subjective Subjective: (covering for Dr. Love) Patient is seen this morning. He is doing better he says. He is moving his right arm and leg. Objective - Vital Signs/Intake and Output Vital Signs (last 24 hours): Temp Pulse Resp BP Pulse Ox 97.8 F 47 L 19 154/81 H 97 09/03/17 00:01 09/03/17 02:00 09/03/17 00:01 09/03/17 00:01 09/03/17 00:01 Intake and Output: 09/03/17 09/03/17 06:59 18:59 Intake Total 420 Output Total 1600 Balance -1180 - Medications Medications: Current Medications Acetaminophen (Tylenol 325mg Tab) 650 mg PO Q6 PRN PRN Reason: TEMP>=99.5F Acetaminophen (Tylenol 650 Mg Supp) 650 mg RC Q6H PRN PRN Reason: TEMP>=99.5F Apixaban (Eliquis) 2.5 mg PO BID [facility] PRN Reason: Protocol Last Admin: 09/02/17 17:34 Dose: 2.5 mg Aspirin (Ecotrin) 81 mg PO DAILY [facility] Last Admin: 09/02/17 09:24 Dose: 81 mg Atorvastatin Calcium (Lipitor) 40 mg PO DIN [facility] Last Admin: 09/02/17 17:34 Dose: 40 mg Clonidine HCl (Catapres) 0.1 mg PO Q6H PRN PRN Reason: FOR SBP>=170&/OR DBP>=100 MMHG Docusate Sodium (Colace) 100 mg PO TID [facility] Last Admin: 09/02/17 17:38 Dose: 100 mg Ergocalciferol (Drisdol 50,000 Intl Units Cap) 1 cap PO Q7D [facility] Last Admin: 08/31/17 18:25 Dose: 1 cap Folic Acid (Folic Acid) 1 mg PO DAILY [facility] Last Admin: 09/02/17 09:24 Dose: 1 mg Insulin Human Lispro (Humalog Med) 0 units SC AC [facility] PRN Reason: Protocol Last Admin: 09/02/17 17:26 Dose: Not Given Ondansetron HCl (Zofran Inj) 4 mg IVP Q4H PRN PRN Reason: Nausea/Vomiting Pantoprazole Sodium (Protonix Ec Tab) 40 mg PO 0600 [facility] Last Admin: 09/03/17 06:39 Dose: 40 mg Polyethylene Glycol (Miralax) 17 gm PO BID [facility] Last Admin: 09/02/17 17:35 Dose: 17 gm Tamsulosin HCl (Flomax) 0.4 mg PO DAILY [facility] - Labs Labs: 09/03/17 06:30 09/03/17 06:30 PT 11.7 SECONDS (9.4-12.5) 08/31/17 12:14 INR 1.02 (0.93-1.08) 08/31/17 12:14 APTT 27.7 Seconds (25.1-36.5) 08/31/17 12:14 - Constitutional Appears: No Acute Distress - Head Exam Head Exam: ATRAUMATIC, NORMOCEPHALIC - Respiratory Exam Respiratory Exam: Clear to Ausculation Bilateral, NORMAL BREATHING PATTERN - Cardiovascular Exam Cardiovascular Exam: +S1, +S2 - GI/Abdominal Exam GI & Abdominal Exam: Soft, Normal Bowel Sounds. absent: Tenderness - Neurological Exam Neurological Exam: Alert, Awake Assessment and Plan - Assessment and Plan (Free Text) Assessment: TIA vs. CVA with right sided weakness and slurred speech Atrial Fibrillation Dementia Plan: Patient is seen this morning. He is moving his right arm and leg. He is answering questions with no noticeable slurring of speech. MRI shows chronic changes, no acute infarct. MRA shows right carotid stenosis of 60%. Patient has been evaluated by vascular surgery. continue physical therapy and speech therapy. Patient to go to rehab.
[2017-09-03] MEDS: Insulin Lispro (humaLOG) MEDIUM Coverage SC SCH ×3 (07:56→17:16)
--- NOTE | 2017-09-03 08:20 | PN ---
DATE: 09/02/2017 SUBJECTIVE: The patient was seen lying in the bed in room 270. PHYSICAL EXAMINATION: VITAL SIGNS: Patient's T-max is 98.1. Telemetry shows sinus rhythm. Heart rate 73, 65, 85, 80; blood pressure 139/75, 140/91, 158/81; respirations 19, O2 sat 98%. HEENT: Head: Normocephalic, atraumatic. HEENT examination shows pink conjunctivae. Anicteric sclerae. No oropharyngeal lesion. NECK: No neck rigidity. Soft carotid bruit. CHEST: Kyphosis. LUNGS: Show no rales, crackles, or wheezing. CARDIOVASCULAR: S1 and S2, regular rhythm. Positive systolic murmur at left sternal border, right second intercostal space, left second intercostal space. ABDOMEN: Soft. Positive bowel sound. No hepatosplenomegaly noted. No costovertebral angle tenderness. No guarding. No rigidity. No rebound tenderness. GENITALIA: Male. EKG shows sinus rhythm, sinus bradycardia. Echocardiogram was done, the result was noted. IMPRESSION: 1. Questionable and most likely transient ischemic attack versus cerebrovascular accident and cerebral ischemia. 2. Right hemiparesis and right-sided weakness (resolved). 3. Dysarthria (resolved). 4. Hypertension. 5. Sinus bradycardia with sinus arrhythmia. 6. Normocytic anemia. 7. Acute kidney injury. 8. Underlying chronic kidney disease stage 3. 9. [id number] diabetes mellitus with hyperglycemia and hemoglobin A1c of 6.4. 10. Mild hyperuricemia. 11. Hypovitaminosis D. 12. Hypercholesteremia with elevated LDL. 13. Proteinuria, microscopic hematuria, bacteriuria. 14. Left ventricular hypertrophy. 15. Proximal right internal carotid artery 60% stenosis with flow voids within the bilateral mid internal carotid artery. 16. Left proximal external carotid artery abnormal morphology. 17. Bilateral middle internal carotid arteries flow voids secondary to questionable artifact. 18. Proximal right external carotid artery hemodynamic significant stenosis. 19. Right internal carotid artery 40% to 60% proximal stenosis. 20. Left internal carotid artery 20% to 39% proximal stenosis. 21. Left ventricle ejection fraction of 62% and hypertensive cardiovascular disease. 22. Pulmonary arterial hypertension with right ventricular systolic pressure of 48 mmHg. 23. Grade 2 pseudo-normal filling dynamics. 24. Calcified aortic valve with moderate aortic regurgitation. 25. Mild aortic stenosis versus aortic sclerosis. 26. Moderate mitral annular calcification. 27. Moderate tricuspid regurgitation and pulmonary hypertension with right ventricular systolic pressure of 48 mmHg. 28. Bilateral inguinal hernia. 29. Fat-containing right-sided inguinal hernia. 30. Sigmoid colon containing left-sided hernia without obstruction. 31. Right hemiparesis (resolved versus resolving). 32. Paroxysmal atrial fibrillation. PLAN: At this time, the patient has been currently followed by Neurology, Cardiology, Surgery, and Vascular Surgery for carotid stenosis. The patient's case referred for TCU, diabetic education, social work job titles. CURRENT MEDICATIONS Clonidine 0.1 mg every 6 hours p.r.n. for hypertension, Colace 100 mg three times a day, Drisdol 50,000 units weekly, Ecotrin 81 mg daily, Eliquis 2.5 mg twice a day, folic acid 1 mg daily, Humalog medium dose sliding scale coverage before meals, Lipitor 40 mg daily, MiraLax 17 g twice a day, Protonix 40 mg daily, IV fluid 0.9 normal saline. IV fluid will be adjusted to 60 mL. Patient's IV fluid is decreased to 60 mL an hour. Tylenol p.r.n., Zofran 4 IV every 6 hours. Chest PT. Repeat EKG ordered. The patient is on dysphagia modified consistency diet. Head of the bed at 30 degrees, out of bed, ÁLVARO stockings, SCDs, physical therapy, occupational therapy. The patient seen by the physical therapist. Their recommendation was acute rehab. The patient's case discussed with social work job titles regarding discharge planning and option. The patient needs to be cleared by Cardiology and Neurology for discharge. Dictated and electronically signed, not read. Clinton Love MD
--- NOTE | 2017-09-03 08:25 | CP.PCM.CON ---
History of Present Illness - History of Present Illness History of Present Illness: Surgery: Dr. Da Silva Pt seen and examined. Resting comfortably in bed. No acute events overnight. Past Patient History - Infectious Disease Hx of Infectious Diseases: None - Tetanus Immunizations Tetanus Immunization: Unknown - Past Medical History & Family History Past Medical History?: Yes - Past Social History Smoking Status: Never Smoked - CARDIAC Hx Cardiac Disorders: Yes Hx Hypertension: Yes - PULMONARY Hx Chronic Obstructive Pulmonary Disease (COPD): No Hx Pneumonia: No - NEUROLOGICAL HX Cerebrovascular Accident: Yes (11/13/2013) - HEENT Hx HEENT Problems: (RX GLASSES) - RENAL Hx Renal Failure: No - ENDOCRINE/METABOLIC Hx Diabetes Mellitus Type 2: Yes - HEMATOLOGICAL/ONCOLOGICAL Hx Blood Disorders: No - INTEGUMENTARY Hx Dermatological Problems: No - MUSCULOSKELETAL/RHEUMATOLOGICAL Hx Arthritis: (Gout) - GASTROINTESTINAL Hx Gastroesophageal Reflux: No - GENITOURINARY/GYNECOLOGICAL Hx Genitourinary Disorders: Yes Hx Prostate Cancer: Yes - PSYCHIATRIC Hx Psychophysiologic Disorder: No Hx Substance Use: No - SURGICAL HISTORY Other/Comment: b/l eye surgery - ANESTHESIA Hx Anesthesia: Yes Hx Anesthesia Reactions: No Hx Malignant Hyperthermia: No Meds Allergies/Adverse Reactions: Allergies Allergy/AdvReac Type Severity Reaction Status Date / Time No Known Allergies Allergy Verified 08/31/17 17:16 - Medications Medications: Current Medications Acetaminophen (Tylenol 325mg Tab) 650 mg PO Q6 PRN PRN Reason: TEMP>=99.5F Acetaminophen (Tylenol 650 Mg Supp) 650 mg RC Q6H PRN PRN Reason: TEMP>=99.5F Apixaban (Eliquis) 2.5 mg PO BID [facility] PRN Reason: Protocol Last Admin: 09/02/17 17:34 Dose: 2.5 mg Aspirin (Ecotrin) 81 mg PO DAILY [facility] Last Admin: 09/02/17 09:24 Dose: 81 mg Atorvastatin Calcium (Lipitor) 40 mg PO DIN [facility] Last Admin: 09/02/17 17:34 Dose: 40 mg Clonidine HCl (Catapres) 0.1 mg PO Q6H PRN PRN Reason: FOR SBP>=170&/OR DBP>=100 MMHG Docusate Sodium (Colace) 100 mg PO TID [facility] Last Admin: 09/02/17 17:38 Dose: 100 mg Ergocalciferol (Drisdol 50,000 Intl Units Cap) 1 cap PO Q7D [facility] Last Admin: 08/31/17 18:25 Dose: 1 cap Folic Acid (Folic Acid) 1 mg PO DAILY [facility] Last Admin: 09/02/17 09:24 Dose: 1 mg Insulin Human Lispro (Humalog Med) 0 units SC AC [facility] PRN Reason: Protocol Last Admin: 09/03/17 07:56 Dose: Not Given Ondansetron HCl (Zofran Inj) 4 mg IVP Q4H PRN PRN Reason: Nausea/Vomiting Pantoprazole Sodium (Protonix Ec Tab) 40 mg PO 0600 [facility] Last Admin: 09/03/17 06:39 Dose: 40 mg Polyethylene Glycol (Miralax) 17 gm PO BID [facility] Last Admin: 09/02/17 17:35 Dose: 17 gm Tamsulosin HCl (Flomax) 0.4 mg PO DAILY [facility] Results - Vital Signs Recent Vital Signs: Last Vital Signs Temp 97.8 F 09/03/17 00:01 Pulse 47 L 09/03/17 02:00 Resp 19 09/03/17 00:01 BP 154/81 H 09/03/17 00:01 Pulse Ox 97 09/03/17 00:01 - Labs Result Diagrams: 09/03/17 06:30 09/03/17 06:30 Labs: Laboratory Results - last 24 hr 09/02/17 09/02/17 09/02/17 11:01 16:10 21:49 WBC RBC Hgb Hct MCV MCH MCHC RDW Plt Count MPV Gran % Lymph % (Auto) [place] % (Auto) Eos % (Auto) Baso % (Auto) Gran # Lymph # (Auto) [place] # (Auto) Eos # (Auto) Baso # (Auto) Sodium Potassium Chloride Carbon Dioxide Anion Gap BUN Creatinine Est GFR ( Amer) Est GFR (Non-Af Amer) POC Glucose (mg/dL) 137 H 113 H 112 H Random Glucose Calcium Magnesium Total Bilirubin Direct Bilirubin AST ALT Alkaline Phosphatase Total Protein Albumin Globulin Albumin/Globulin Ratio 09/03/17 09/03/17 09/03/17 06:30 06:30 07:22 WBC 6.0 RBC 3.97 Hgb 10.7 L Hct 33.9 L MCV 85.4 MCH 27.0 MCHC 31.6 RDW 15.5 H Plt Count 289 MPV 9.7 Gran % 72.7 H Lymph % (Auto) 15.6 L [place] % (Auto) 7.7 H Eos % (Auto) 3.8 Baso % (Auto) 0.2 Gran # 4.37 Lymph # (Auto) 0.9 L [place] # (Auto) 0.5 Eos # (Auto) 0.2 Baso # (Auto) 0.01 Sodium 142 Potassium 4.7 Chloride 105 Carbon Dioxide 29 Anion Gap 13 BUN 24 H Creatinine 1.5 Est GFR ( Amer) 53 Est GFR (Non-Af Amer) 44 POC Glucose (mg/dL) 115 H Random Glucose 124 H Calcium 9.0 Magnesium 2.1 Total Bilirubin 0.3 Direct Bilirubin 0.2 AST 45 ALT 30 Alkaline Phosphatase 67 Total Protein 7.0 Albumin 3.7 Globulin 3.2 Albumin/Globulin Ratio 1.2
[2017-09-03 08:26] VITALS: O2SAT 98
--- NOTE | 2017-09-03 08:31 | CP.PCM.PN ---
Subjective - Date & Time of Evaluation Date of Evaluation: 09/03/17 Time of Evaluation: 08:25 - Subjective Subjective: Surgery: Dr. Da Silva Pt seen and examined. Resting comfortably in bed. No acute events overnight. Objective - Vital Signs/Intake and Output Vital Signs (last 24 hours): Temp Pulse Resp BP Pulse Ox 97.8 F 47 L 19 154/81 H 97 09/03/17 00:01 09/03/17 02:00 09/03/17 00:01 09/03/17 00:01 09/03/17 00:01 Intake and Output: 09/03/17 09/03/17 06:59 18:59 Intake Total 420 Output Total 1600 Balance -1180 - Medications Medications: Current Medications Acetaminophen (Tylenol 325mg Tab) 650 mg PO Q6 PRN PRN Reason: TEMP>=99.5F Acetaminophen (Tylenol 650 Mg Supp) 650 mg RC Q6H PRN PRN Reason: TEMP>=99.5F Apixaban (Eliquis) 2.5 mg PO BID [facility] PRN Reason: Protocol Last Admin: 09/02/17 17:34 Dose: 2.5 mg Aspirin (Ecotrin) 81 mg PO DAILY [facility] Last Admin: 09/02/17 09:24 Dose: 81 mg Atorvastatin Calcium (Lipitor) 40 mg PO DIN [facility] Last Admin: 09/02/17 17:34 Dose: 40 mg Clonidine HCl (Catapres) 0.1 mg PO Q6H PRN PRN Reason: FOR SBP>=170&/OR DBP>=100 MMHG Docusate Sodium (Colace) 100 mg PO TID [facility] Last Admin: 09/02/17 17:38 Dose: 100 mg Ergocalciferol (Drisdol 50,000 Intl Units Cap) 1 cap PO Q7D [facility] Last Admin: 08/31/17 18:25 Dose: 1 cap Folic Acid (Folic Acid) 1 mg PO DAILY [facility] Last Admin: 09/02/17 09:24 Dose: 1 mg Insulin Human Lispro (Humalog Med) 0 units SC AC [facility] PRN Reason: Protocol Last Admin: 09/03/17 07:56 Dose: Not Given Ondansetron HCl (Zofran Inj) 4 mg IVP Q4H PRN PRN Reason: Nausea/Vomiting Pantoprazole Sodium (Protonix Ec Tab) 40 mg PO 0600 [facility] Last Admin: 09/03/17 06:39 Dose: 40 mg Polyethylene Glycol (Miralax) 17 gm PO BID [facility] Last Admin: 09/02/17 17:35 Dose: 17 gm Tamsulosin HCl (Flomax) 0.4 mg PO DAILY [facility] - Labs Labs: 09/03/17 06:30 09/03/17 06:30 PT 11.7 SECONDS (9.4-12.5) 08/31/17 12:14 INR 1.02 (0.93-1.08) 08/31/17 12:14 APTT 27.7 Seconds (25.1-36.5) 08/31/17 12:14 - Constitutional Appears: Non-toxic, No Acute Distress - Head Exam Head Exam: ATRAUMATIC, NORMOCEPHALIC - Eye Exam Eye Exam: EOMI - ENT Exam ENT Exam: Mucous Membranes Moist - Neck Exam Neck Exam: Full ROM - Respiratory Exam Respiratory Exam: NORMAL BREATHING PATTERN. absent: Accessory Muscle Use, Respiratory Distress - GI/Abdominal Exam GI & Abdominal Exam: Soft. absent: Tenderness - Extremities Exam Extremities Exam: absent: Calf Tenderness, Pedal Edema Additional comments: 5/5 strength UE and LE - Neurological Exam Neurological Exam: Alert, Awake - Psychiatric Exam Psychiatric exam: Normal Affect, Normal Mood Assessment and Plan - Assessment and Plan (Free Text) Assessment: 87M w. B/L carotid stenosis -R ICA: 40-60% stenosis -L ICA 20-40% stenosis -no indications for CEA -repeat U/S in 6 months -d/w attending García PGY3
[2017-09-03] MEDS: POLYETHYLENE GLYCOL 3350 17 GM/Dose PACKET PO SCH ×2 (09:19→17:42)
--- NOTE | 2017-09-03 12:26 | PN ---
DATE: 09/03/2017 SUBJECTIVE: The patient was seen at bedside. His history and physical was as dictated by the resident. Currently, he is awake, alert, respond appropriately when spoken to slowly. He still has residual weakness in his right hand and his right leg is almost as strong as his left. His carotid duplex is reviewed. Currently, there is no indication for carotid endarterectomy. He is to be continued on his current meds and undergo a followup ultrasound in 6 months is recommended. Phyllis Da Silva MD
[2017-09-03 12:27] VITALS: RESP 18
--- NOTE | 2017-09-03 13:11 | PN ---
DATE: REASON FOR CONSULTATION AND FOLLOWUP: TIA, right-sided weakness, atrial fibrillation, hypertension, cardiac evaluation and followup. SUBJECTIVE: The patient has any chest pain, shortness of breath, or any palpitation. OBJECTIVE: GENERAL: Not in apparent distress. VITAL SIGNS: Temperature afebrile. Heart rate 52, blood pressure 144/82. HEENT: PERRLA. Extraocular muscles intact. NECK: Supple. No carotid bruit or thyromegaly. CHEST: Clear to auscultation. HEART: S1 and S2 regular. ABDOMEN: Soft. EXTREMITIES: Clubbing and cyanosis negative. LABORATORY DATA: Blood workup as follows: WBC 6, hemoglobin 10.3, hematocrit 33.9, platelet count 289. Chemistry shows sodium 140, potassium 4, chloride 105, carbon dioxide 29, anion gap of 13, BUN 24, creatinine 1.5. IMPRESSION: Transient ischemic attack rule out cerebrovascular accident, history of paroxysmal atrial fibrillation, hypertension. The patient had an echocardiography done yesterday. No evidence of patent foramen ovale. Interatrial septum by color flow and bubble study, ejection fraction 60% to 65%, there is mild aortic stenosis, mild mitral regurgitation, [id number] tricuspid regurgitation, right ventricular systolic pressure of 48, history of paroxysmal atrial fibrillation, was on Eliquis because of paroxysmal atrial fibrillation. RECOMMENDATION: Continue aggressive control of blood pressure, continue Eliquis, continue atorvastatin, continue clonidine for blood pressure. Continue rehab. Goal is to keep LDL less than 100 on 40 mg of atorvastatin. Aggressive control of blood pressure and goal is to keep less than 130 to 140 systolic. We will follow with you. Electrolytes are within the normal limits, telemetry shows normal sinus. EKG shows normal sinus tobi with arrhythmia. We will repeat another EKG. David Carnes MD
--- NOTE | 2017-09-03 18:34 | CP.PCM.PN ---
Subjective - Date & Time of Evaluation Date of Evaluation: 09/03/17 Time of Evaluation: 12:10 - Subjective Subjective: Mr. Dixon was seen and examined today at bedside. He was pleasant and in good spirits. He seemed to be much improved with regard to strength in the right lower extremity. There were no acute events overnight. Objective - Vital Signs/Intake and Output Vital Signs (last 24 hours): Temp Pulse Resp BP Pulse Ox 98.5 F 67 18 159/74 H 98 09/03/17 12:00 09/03/17 12:00 09/03/17 12:00 09/03/17 12:00 09/03/17 06:00 Intake and Output: 09/03/17 09/03/17 06:59 18:59 Intake Total 420 Output Total 1600 Balance -1180 - Medications Medications: Current Medications Acetaminophen (Tylenol 325mg Tab) 650 mg PO Q6 PRN PRN Reason: TEMP>=99.5F Acetaminophen (Tylenol 650 Mg Supp) 650 mg RC Q6H PRN PRN Reason: TEMP>=99.5F Apixaban (Eliquis) 2.5 mg PO BID [facility] PRN Reason: Protocol Last Admin: 09/03/17 17:42 Dose: 2.5 mg Aspirin (Ecotrin) 81 mg PO DAILY [facility] Last Admin: 09/03/17 09:19 Dose: 81 mg Atorvastatin Calcium (Lipitor) 40 mg PO DIN [facility] Last Admin: 09/03/17 17:42 Dose: 40 mg Clonidine HCl (Catapres) 0.1 mg PO Q6H PRN PRN Reason: FOR SBP>=170&/OR DBP>=100 MMHG Docusate Sodium (Colace) 100 mg PO TID [facility] Last Admin: 09/03/17 17:42 Dose: 100 mg Ergocalciferol (Drisdol 50,000 Intl Units Cap) 1 cap PO Q7D [facility] Last Admin: 08/31/17 18:25 Dose: 1 cap Folic Acid (Folic Acid) 1 mg PO DAILY [facility] Last Admin: 09/03/17 09:19 Dose: 1 mg Insulin Human Lispro (Humalog Med) 0 units SC AC [facility] PRN Reason: Protocol Last Admin: 09/03/17 17:16 Dose: Not Given Ondansetron HCl (Zofran Inj) 4 mg IVP Q4H PRN PRN Reason: Nausea/Vomiting Pantoprazole Sodium (Protonix Ec Tab) 40 mg PO 0600 [facility] Last Admin: 09/03/17 06:39 Dose: 40 mg Polyethylene Glycol (Miralax) 17 gm PO BID [facility] Last Admin: 09/03/17 17:42 Dose: 17 gm Tamsulosin HCl (Flomax) 0.4 mg PO DAILY [facility] Last Admin: 09/03/17 09:19 Dose: 0.4 mg - Labs Labs: 09/03/17 06:30 09/03/17 06:30 PT 11.7 SECONDS (9.4-12.5) 08/31/17 12:14 INR 1.02 (0.93-1.08) 08/31/17 12:14 APTT 27.7 Seconds (25.1-36.5) 08/31/17 12:14 - Neurological Exam Neurological Exam: Abnormal Gait, Awake, CN II-XII Intact, Oriented x3, Reflexes Normal Neuro motor strength exam: Left Upper Extremity: 4, Right Upper Extremity: 4, Left Lower Extremity: 5, Right Lower Extremity: 4 Assessment and Plan (1) Cerebral ischemia Assessment & Plan: Will continue current medications for secondary stroke prevention and recommend subacute rehab. The patient will likely be transferred to TCU. Status: Acute
[2017-09-03 18:37] VITALS: BP 161/84; PULSE 71; TEMP 98.3
== END 2017-09-03 18:20 | DRG 68 ==
LOC: ED 11:28 → ERH 14:19 → 2RSO 15:48
PROVIDERS: ADMIT Internal Medicine; ATTEND Internal Medicine
DX: I65.21 Occlusion and stenosis of right carotid artery (principal); G81.91 Hemiplegia, unspecified affecting right dominant side; N17.9 Acute kidney failure, unspecified; E11.65 Type 2 diabetes mellitus with hyperglycemia; R13.12 Dysphagia, oropharyngeal phase; R47.1 Dysarthria and anarthria; M10.9 Gout, unspecified; I13.10 Hypertensive heart and chronic kidney disease without heart failure, with stage 1 through stage 4 chronic kidney disease, or unspecified chronic kidney disease; N18.3 Chronic kidney disease, stage 3 (moderate); I48.0 Paroxysmal atrial fibrillation; K40.20 Bilateral inguinal hernia, without obstruction or gangrene, not specified as recurrent; I08.3 Combined rheumatic disorders of mitral, aortic and tricuspid valves; E11.22 Type 2 diabetes mellitus with diabetic chronic kidney disease; D64.9 Anemia, unspecified; E78.00 Pure hypercholesterolemia, unspecified; I27.21 Secondary pulmonary arterial hypertension; E55.9 Vitamin D deficiency, unspecified; K59.09 Other constipation; F03.90 Unspecified dementia, unspecified severity, without behavioral disturbance, psychotic disturbance, mood disturbance, and anxiety; Z85.46 Personal history of malignant neoplasm of prostate; Z86.73 Personal history of transient ischemic attack (TIA), and cerebral infarction without residual deficits; Z79.4 Long term (current) use of insulin; Z79.82 Long term (current) use of aspirin

== ENCOUNTER 2017-09-03 18:20 | Inpatient (IN) | payer MEDICARE, OTHER ==
[2017-09-03 20:02] VITALS: BMI 25.7
[2017-09-03] MEDS: Insulin Lispro (humaLOG) MEDIUM Coverage SC SCH (21:51)
[2017-09-03] MEDS ORDERED: INSULIN LISPRO 1 UNIT SQ SCH (22:00)
[2017-09-03] MEDS ORDERED: Pneumococcal 23-Valent Vaccine IM ONE (22:47)
[2017-09-04] MEDS: Pantoprazole 40 mg EC Tab PO SCH (06:03)
[2017-09-04] MEDS: Insulin Lispro (humaLOG) MEDIUM Coverage SC SCH ×4 (06:32→21:39)
--- NOTE | 2017-09-04 09:00 | CP.PCM.CON ---
History of Present Illness - History of Present Illness History of Present Illness: Subjective: I am doing okay, denies shortness of breath,denies chest pain Reason for consultation: Continuity of care in TCU, history of CVA, Atrial fibrillation on Eliquis HISTORY OF PRESENT ILLNESS: A 87 year old male who was initially admitted due to slurring of speech and right sided weakness. he was recently just came back from [place]. He is non-compliant with medications. He denied cheat pain and shortness of breath. He has a history of prostate cancer,insulin dependent diabetes mellitus, cerebrovascular accident, hypertension, atrial fibrillation on Eliquis, gout. He deies chest pain and shortness of breath. denies smoking and alcohol abuse Seen and examined by me and Dr. Carnes Review of Systems - EENT Additional comments: wears glasses, denies any problems - Cardiovascular Additional comments: denies chest pain, denies shortness of breath,denies palpitation - Respiratory Additional comments: denies snooring, denies shortness of breath - Gastrointestinal Additional comments: denies nausea/vomiting - Genitourinary Additional comments: history of prostate cancer, denies difficulty in urination - Neurological Additional comments: denies slurring of speech - Endocrine Additional Comments: admits to diabetes mellitus on insulin Past Patient History - Infectious Disease Hx of Infectious Diseases: None - Tetanus Immunizations Tetanus Immunization: Unknown - Past Medical History & Family History Past Medical History?: Yes - Past Social History Smoking Status: Never Smoked - CARDIAC Hx Hypertension: Yes - PULMONARY Hx Chronic Obstructive Pulmonary Disease (COPD): No Hx Pneumonia: No - NEUROLOGICAL HX Cerebrovascular Accident: Yes - HEENT Hx HEENT Problems: (RX GLASSES) - RENAL Hx Renal Failure: No - ENDOCRINE/METABOLIC Hx Diabetes Mellitus Type 2: Yes - HEMATOLOGICAL/ONCOLOGICAL Hx Blood Disorders: No - INTEGUMENTARY Hx Dermatological Problems: No - MUSCULOSKELETAL/RHEUMATOLOGICAL Hx Falls: No - GASTROINTESTINAL Hx Gastrointestinal Disorders: Yes (gerd,constipation,bilateral inguinal hernia) - GENITOURINARY/GYNECOLOGICAL Hx Genitourinary Disorders: Yes Hx Reproductive Disorders: Yes (prostate ca) - PSYCHIATRIC Hx Psychophysiologic Disorder: No Hx Substance Use: No - SURGICAL HISTORY Other/Comment: b/l eye surgery - ANESTHESIA Hx Anesthesia: Yes Hx Anesthesia Reactions: No Hx Malignant Hyperthermia: No Meds Allergies/Adverse Reactions: Allergies Allergy/AdvReac Type Severity Reaction Status Date / Time No Known Allergies Allergy Verified 08/31/17 17:16 - Medications Medications: Current Medications Acetaminophen (Tylenol 325mg Tab) 650 mg PO Q6H PRN PRN Reason: Temperature Acetaminophen (Tylenol 650 Mg Supp) 650 mg RC Q6H PRN PRN Reason: Temperature Apixaban (Eliquis) 2.5 mg PO BID [facility] PRN Reason: Protocol Aspirin (Ecotrin) 81 mg PO 0800 [facility] Last Admin: 09/04/17 08:05 Dose: 81 mg Atorvastatin Calcium (Lipitor) 40 mg PO 1700 [facility] Clonidine HCl (Catapres) 0.1 mg PO Q6 PRN PRN Reason: Systolic Blood Pressure Docusate Sodium (Colace) 100 mg PO TID [facility] Ergocalciferol (Drisdol 50,000 Intl Units Cap) 1 cap PO Q7D [facility] Folic Acid (Folic Acid) 1 mg PO DAILY [facility] Insulin Human Lispro (Humalog Med) 0 units SC ACHS [facility] PRN Reason: Protocol Last Admin: 09/04/17 06:32 Dose: Not Given Ondansetron HCl (Zofran Inj) 4 mg IVP Q4H PRN PRN Reason: Nausea/Vomiting Pantoprazole Sodium (Protonix Ec Tab) 40 mg PO 0600 [facility] Last Admin: 09/04/17 06:03 Dose: 40 mg Polyethylene Glycol (Miralax) 17 gm PO BID [facility] Tamsulosin HCl (Flomax) 0.4 mg PO 1830 [facility] Results - Vital Signs Recent Vital Signs: Last Vital Signs Temp 98.3 F 09/03/17 22:29 Pulse 87 09/03/17 22:29 Resp 20 09/03/17 22:29 BP 103/67 09/03/17 22:29 Pulse Ox - Labs Labs: Laboratory Results - last 24 hr 09/04/17 05:47 POC Glucose (mg/dL) 124 H Assessment & Plan - Assessment and Plan (Free Text) Assessment: Continuity of care in TCU, A 87 year old male who was initially admitted due to slurring of speech and right sided weakness. he was recently just came back from [place]. He is non-compliant with medications. He denied cheat pain and shortness of breath. He has a history of prostate cancer,insulin dependent diabetes mellitus, cerebrovascular accident, hypertension, atrial fibrillation on Eliquis, gout. He deies chest pain and shortness of breath. denies smoking and alcohol abuse. transferred to TCU for reconditioning. Review of work up: ECHO done 09/01/17- (full report in chart) LVEF 60-655 Mild to moderate aortic regurgitation Mild to moderate tricuspid regurgitation Mild pulmonary hypertension No vegetation or thrombus, Interatrial septum intact and no evidence of atrial septal defect CT of head 08/31/17 negative for bleeding/hemorrhage Carotid duplex studies 08/31/17- 40-50% stenosis proximal Right ICA 20-30% stenosis proximal left ICA Neck MRI 09/01/17- 60% proximal right ICA (full report in chart) EKG 09/02/17- Sinus bradycardia with sinus arrythmia, Rate 50's Plan: Cardiac status stable Denies any slurring of speech Evaluated by vascular for carotid artery stenosis Physical therapy in progress On Eliquis 2.5 mg BID, ASA 81 mg daily, lipitor 40 mg daily,Catapres 0.1 mg PRN Stable blood pressure and heart rate Continue current medication Continue current treatment Will follow up Thank you Dr. Love for giving us the opportunity to participate in the care of Mr. Etienne Dixon - Date & Time Date: 09/04/17 Time: 07:30
[2017-09-04] MEDS: POLYETHYLENE GLYCOL 3350 17 GM/Dose PACKET PO SCH ×2 (10:04→17:42)
--- NOTE | 2017-09-04 18:33 | HP ---
This is a history and physical examination for a patient in the Transitional Care Unit. HISTORY OF PRESENT ILLNESS: This patient is an 87-year-old male. The patient was admitted to Transitional Care Unit for rehabilitation, deconditioning, and gait management. The patient's past history is significant that history of hypertension, diabetes. The patient has had a previous stroke involving the left hemisphere. The patient has weakness of the right side of the arm and leg. 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 The patient's gait is very weak. The patient has difficulty in balancing himself due to weakness of the right leg. The patient does not smoke. Does not drink alcohol. PHYSICAL EXAMINATION: VITAL SIGNS: The pulse is 87, respirations are 20, O2 sat is 98% on room air, the patient's temperature 98.3, blood pressure 103/67. GENERAL: The patient is pleasant and answers all questions and he is anticipating physical therapy. HEENT: The patient's examination of the head is normocephalic. NECK: The carotid pulses are present. Thyroid is not enlarged. The JVP is flat. LUNGS: Trachea central. Breath sounds are vesicular. No adventitious sounds heard. HEART: NSR. S1, S2 present. No murmurs. ABDOMEN: Soft. Liver and spleen not palpable. No tenderness. No masses. 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 MEDICATIONS: The patient's list of medications consist of clonidine 0.1 mg every 6 hours for elevation of systolic blood pressure, the patient is on aspirin 81 mg daily, apixaban, Eliquis 2.5 mg b.i.d., the patient is on Flomax 0.4 mg daily, folic acid 1 mg daily, insulin coverage for diabetes, vitamin D 50,000 units once a week. The patient is on Lipitor 40 mg daily, MiraLax for constipation, pantoprazole 40 mg daily. The patient is on heart-healthy diet. LABORATORY DATA: The patient's lab work is not done from this admission. IMPRESSION: The patient's prognosis is good. The patient's overall condition is stable. Even though, the patient needs some adjustments as far as physical therapy and rehabilitation to improve his gait and balance. His mental status is excellent. Dora So MD [facility] # [id number]
[2017-09-05] MEDS: Pantoprazole 40 mg EC Tab PO SCH (05:56)
[2017-09-05] MEDS: Insulin Lispro (humaLOG) MEDIUM Coverage SC SCH ×4 (06:48→21:53)
--- NOTE | 2017-09-05 08:07 | CP.PCM.PN ---
Subjective - Date & Time of Evaluation Date of Evaluation: 09/05/17 Time of Evaluation: 07:00 - Subjective Subjective: Denies shortness of breath,denies chest pain, feels okay Reason for consultation: Continuity of care in TCU, history of CVA, Atrial fibrillation on Eliquis,hypertension,diabetes mellitus Seen and examined by me and Dr. Carnes Objective - Vital Signs/Intake and Output Vital Signs (last 24 hours): Temp Pulse Resp BP Pulse Ox 97.8 F 69 20 152/77 H 99 09/05/17 06:00 09/05/17 06:00 09/05/17 06:00 09/05/17 06:00 09/05/17 06:00 Intake and Output: 09/05/17 09/05/17 06:59 18:59 Intake Total 420 Balance 420 - Medications Medications: Current Medications Acetaminophen (Tylenol 325mg Tab) 650 mg PO Q6H PRN PRN Reason: Temperature Acetaminophen (Tylenol 650 Mg Supp) 650 mg RC Q6H PRN PRN Reason: Temperature Apixaban (Eliquis) 2.5 mg PO BID [facility] PRN Reason: Protocol Last Admin: 09/04/17 17:45 Dose: 2.5 mg Aspirin (Ecotrin) 81 mg PO 0800 [facility] Last Admin: 09/05/17 07:47 Dose: 81 mg Atorvastatin Calcium (Lipitor) 40 mg PO 1700 [facility] Last Admin: 09/04/17 17:45 Dose: 40 mg Clonidine HCl (Catapres) 0.1 mg PO Q6 PRN PRN Reason: Systolic Blood Pressure Docusate Sodium (Colace) 100 mg PO TID [facility] Last Admin: 09/04/17 17:41 Dose: Not Given Ergocalciferol (Drisdol 50,000 Intl Units Cap) 1 cap PO Q7D [facility] Folic Acid (Folic Acid) 1 mg PO DAILY [facility] Last Admin: 09/04/17 10:05 Dose: 1 mg Insulin Human Lispro (Humalog Med) 0 units SC ACHS [facility] PRN Reason: Protocol Last Admin: 09/05/17 06:48 Dose: Not Given Ondansetron HCl (Zofran Inj) 4 mg IVP Q4H PRN PRN Reason: Nausea/Vomiting Pantoprazole Sodium (Protonix Ec Tab) 40 mg PO 0600 [facility] Last Admin: 09/05/17 05:56 Dose: 40 mg Polyethylene Glycol (Miralax) 17 gm PO BID [facility] Last Admin: 09/04/17 17:42 Dose: Not Given Tamsulosin HCl (Flomax) 0.4 mg PO 1830 [facility] Last Admin: 09/04/17 17:46 Dose: 0.4 mg - Constitutional Appears: No Acute Distress - ENT Exam ENT Exam: Mucous Membranes Moist - Respiratory Exam Respiratory Exam: Clear to Ausculation Bilateral, NORMAL BREATHING PATTERN - Cardiovascular Exam Cardiovascular Exam: +S1, +S2 - GI/Abdominal Exam GI & Abdominal Exam: Soft, Normal Bowel Sounds - Extremities Exam Extremities Exam: Normal Capillary Refill - Neurological Exam Neurological Exam: Alert, Awake, Oriented x3 - Psychiatric Exam Psychiatric exam: Normal Affect, Normal Mood - Skin Skin Exam: Intact, Normal Color, Warm Assessment and Plan - Assessment and Plan (Free Text) Assessment: A 87 year old male who was initially admitted due to slurring of speech and right sided weakness. he was recently just came back from [place]. He is non- compliant with medications. He denied cheat pain and shortness of breath. He has a history of prostate cancer,insulin dependent diabetes mellitus, cerebrovascular accident, hypertension, atrial fibrillation on Eliquis, gout. He denies chest pain and shortness of breath. denies smoking and alcohol abuse Plan: Cardiac status stable Physical therapy in progress On Eliquis 2.5 mg BID, ASA 81 mg daily, lipitor 40 mg daily,Catapres 0.1 mg PRN Stable blood pressure and heart rate Continue current medication Continue current treatment Will follow up Plan and treatment discussed with Dr. Carnes
[2017-09-05] MEDS: POLYETHYLENE GLYCOL 3350 17 GM/Dose PACKET PO SCH ×2 (09:46→17:10)
[2017-09-06] MEDS: Pantoprazole 40 mg EC Tab PO SCH (06:06)
--- NOTE | 2017-09-06 07:06 | CP.PCM.PN ---
Subjective - Date & Time of Evaluation Date of Evaluation: 09/06/17 Time of Evaluation: 06:35 - Subjective Subjective: sleeping but easily awaken,denies shortness of breath,denies chest pain, no complaints Reason for consultation: Continuity of care in TCU, history of CVA, Atrial fibrillation on Eliquis,hypertension,diabetes mellitus Seen and examined by me and Dr. Carnes Objective - Vital Signs/Intake and Output Vital Signs (last 24 hours): Temp Pulse Resp BP Pulse Ox 98.2 F 70 18 166/82 H 96 09/05/17 17:04 09/05/17 17:04 09/05/17 17:04 09/05/17 17:04 09/05/17 17:04 Intake and Output: 09/06/17 09/06/17 06:59 18:59 Intake Total 420 Balance 420 - Medications Medications: Current Medications Acetaminophen (Tylenol 325mg Tab) 650 mg PO Q6H PRN PRN Reason: Temperature Acetaminophen (Tylenol 650 Mg Supp) 650 mg RC Q6H PRN PRN Reason: Temperature Apixaban (Eliquis) 2.5 mg PO BID [facility] PRN Reason: Protocol Last Admin: 09/05/17 17:10 Dose: 2.5 mg Aspirin (Ecotrin) 81 mg PO 0800 [facility] Last Admin: 09/05/17 07:47 Dose: 81 mg Atorvastatin Calcium (Lipitor) 40 mg PO 1700 [facility] Last Admin: 09/05/17 17:09 Dose: 40 mg Clonidine HCl (Catapres) 0.1 mg PO Q6 PRN PRN Reason: Systolic Blood Pressure Docusate Sodium (Colace) 100 mg PO TID [facility] Last Admin: 09/05/17 17:09 Dose: Not Given Ergocalciferol (Drisdol 50,000 Intl Units Cap) 1 cap PO Q7D [facility] Folic Acid (Folic Acid) 1 mg PO DAILY [facility] Last Admin: 09/05/17 09:45 Dose: 1 mg Insulin Human Lispro (Humalog Med) 0 units SC ACHS [facility] PRN Reason: Protocol Last Admin: 09/05/17 21:53 Dose: Not Given Ondansetron HCl (Zofran Inj) 4 mg IVP Q4H PRN PRN Reason: Nausea/Vomiting Pantoprazole Sodium (Protonix Ec Tab) 40 mg PO 0600 [facility] Last Admin: 09/06/17 06:06 Dose: 40 mg Polyethylene Glycol (Miralax) 17 gm PO BID [facility] Last Admin: 09/05/17 17:10 Dose: Not Given Tamsulosin HCl (Flomax) 0.4 mg PO 1830 [facility] Last Admin: 09/05/17 17:33 Dose: 0.4 mg - Constitutional Appears: No Acute Distress - Eye Exam Pupil Exam: NORMAL ACCOMODATION - ENT Exam ENT Exam: Mucous Membranes Moist - Respiratory Exam Respiratory Exam: Clear to Ausculation Bilateral, NORMAL BREATHING PATTERN - Cardiovascular Exam Cardiovascular Exam: +S1, +S2 Additional comments: No JVD - GI/Abdominal Exam GI & Abdominal Exam: Soft, Normal Bowel Sounds - Extremities Exam Extremities Exam: Normal Capillary Refill - Neurological Exam Neurological Exam: Alert, Awake, Oriented x3 - Psychiatric Exam Psychiatric exam: Normal Affect, Normal Mood - Skin Skin Exam: Intact, Normal Color, Warm Assessment and Plan - Assessment and Plan (Free Text) Assessment: A 87 year old male who was initially admitted due to slurring of speech and right sided weakness. he was recently just came back from [place]. He is non- compliant with medications. He denied cheat pain and shortness of breath. He has a history of prostate cancer,insulin dependent diabetes mellitus, cerebrovascular accident, hypertension, atrial fibrillation on Eliquis, gout. He denies chest pain and shortness of breath. denies smoking and alcohol abuse. Plan: Physical therapy in progress On Eliquis 2.5 mg BID, ASA 81 mg daily, lipitor 40 mg daily,Catapres 0.1 mg PRN Stable blood pressure and heart rate Continue current medication Continue current treatment Cardiac status stable Will follow up Plan and treatment discussed with Dr. Carnes
[2017-09-06] MEDS: Insulin Lispro (humaLOG) MEDIUM Coverage SC SCH ×4 (07:10→21:48)
--- NOTE | 2017-09-06 08:03 | PN ---
DATE: 09/05/2017 LOCATION: The patient is in Transitional Care Unit, room 314. SUBJECTIVE: The patient was admitted to the Transitional Care Unit for rehabilitation, deconditioning and also the patient had difficulty in ambulation and balance. The patient has significant past history, has had a stroke about 4 years ago. The patient has had some residual disabilities since that stroke. The patient has past history of hypertension and diabetes and the patient is a very compassionate sweet gentleman. He lies quietly in bed, very obedient and he has seen this morning. He has no complaints. PHYSICAL EXAMINATION: VITAL SIGNS: The pulse is 69, blood pressure 152/77, the patient's respirations 20, O2 sat is 99% on room air. HEENT: The patient's head is normocephalic. LUNGS: Trachea central. Breath sounds are vesicular. No adventitious sounds. HEART: Normal sinus rhythm. S1 and S2 present. No murmurs. ABDOMEN: Soft. Liver and spleen not palpable. 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 These are findings that were present at the time of admission. They are much improved from initial stage. ASSESSMENT AND PLAN: The patient's CT scan confirms evidence of multiple strokes in the brain. The patient does have some failure of mental state, minimal. His medications consist of clonidine 0.1 mg every 6 hours for elevation of blood pressure, vitamin D, the patient gets aspirin, the patient gets Eliquis for atrial fibrillation and Flomax for benign prostate hyperplasia, folic acid, insulin coverage for diabetes and the patient is on Lipitor for atherosclerotic cerebrovascular disease. The patient is on pantoprazole for gastritis. His overall condition seemed to be stable at this time. The patient needs physical therapy and rehabilitation. We will continue current management and follow up. Please note, the patient's cardiac rhythm is atrial fibrillation that is the stable rhythm and the patient's Eliquis is placed to prevent any blood clots to be distributed. It is the anticoagulation to prevent any strokes from atrial fibrillation. Dora So MD [facility] # [id number]
--- NOTE | 2017-09-06 09:05 | PN ---
DATE: 09/06/2017 LOCATION: The patient is in the Transitional Care Unit, room 314, bed 1. SUBJECTIVE: The patient was admitted for rehabilitation, deconditioning, gait management. The patient has past history of hypertension, coronary artery disease, cerebrovascular disease. The patient also has had a stroke with right hemiparesis. PHYSICAL EXAMINATION: VITAL SIGNS: This morning, his pulse is 70, blood pressure 166/82, respirations are 18, O2 sat is 96% on room air, the patient's temperature 98.2. HEENT: As mentioned, the patient's head is normocephalic. He is very pleasant, answers all questions and he has no complaints. LUNGS: Clear. HEART: Normal sinus rhythm. ABDOMEN: Soft. Liver and spleen not palpable. 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 The patient's gait is abnormal. He tends to fall to one side. LABORATORY DATA: The patient's blood work done recently. The blood sugar is 111. MEDICATIONS: He is on clonidine 0.1 mg every 6 hours p.r.n. for blood pressure control, aspirin. The patient is on Eliquis 2.5 mg b.i.d. The patient has had history of atrial fibrillation in the past, folic acid. The patient has insulin coverage for diabetes and vitamin D. ASSESSMENT AND PLAN: The patient's diet is heart-healthy diet. He eats fish and chicken and vegetarian diet otherwise. He does not eat any red meat. The patient is progressing pretty well with physical therapy shows evidence of improvement in strength in his right arm. We will continue current management. Dora So MD
[2017-09-06] MEDS: POLYETHYLENE GLYCOL 3350 17 GM/Dose PACKET PO SCH ×2 (10:11→17:23)
[2017-09-07] MEDS: Pantoprazole 40 mg EC Tab PO SCH (05:22)
[2017-09-07] MEDS: Insulin Lispro (humaLOG) MEDIUM Coverage SC SCH ×4 (06:39→22:01)
--- NOTE | 2017-09-07 07:35 | CP.PCM.PN ---
Subjective - Date & Time of Evaluation Date of Evaluation: 09/07/17 Time of Evaluation: 06:20 - Subjective Subjective: Awake ,denies shortness of breath,denies chest pain, no complaints Reason for consultation: Continuity of care in TCU, history of CVA, Atrial fibrillation on Eliquis,hypertension,diabetes mellitus Seen and examined by me and Dr. Carnes Objective - Vital Signs/Intake and Output Vital Signs (last 24 hours): Temp Pulse Resp BP Pulse Ox 98 F 70 18 174/77 H 97 09/06/17 16:00 09/07/17 05:22 09/06/17 16:00 09/07/17 05:22 09/06/17 16:00 Intake and Output: 09/07/17 09/07/17 06:59 18:59 Intake Total 360 Balance 360 - Medications Medications: Current Medications Acetaminophen (Tylenol 325mg Tab) 650 mg PO Q6H PRN PRN Reason: Temperature Acetaminophen (Tylenol 650 Mg Supp) 650 mg RC Q6H PRN PRN Reason: Temperature Apixaban (Eliquis) 2.5 mg PO BID [facility] PRN Reason: Protocol Last Admin: 09/06/17 17:16 Dose: 2.5 mg Aspirin (Ecotrin) 81 mg PO 0800 [facility] Last Admin: 09/06/17 07:52 Dose: 81 mg Atorvastatin Calcium (Lipitor) 40 mg PO 1700 [facility] Last Admin: 09/06/17 17:15 Dose: 40 mg Clonidine HCl (Catapres) 0.1 mg PO Q6 PRN PRN Reason: Systolic Blood Pressure Last Admin: 09/07/17 05:22 Dose: 0.1 mg Docusate Sodium (Colace) 100 mg PO TID [facility] Last Admin: 09/06/17 17:16 Dose: Not Given Ergocalciferol (Drisdol 50,000 Intl Units Cap) 1 cap PO Q7D [facility] Folic Acid (Folic Acid) 1 mg PO DAILY [facility] Last Admin: 09/06/17 10:11 Dose: 1 mg Insulin Human Lispro (Humalog Med) 0 units SC ACHS [facility] PRN Reason: Protocol Last Admin: 09/07/17 06:39 Dose: Not Given Ondansetron HCl (Zofran Inj) 4 mg IVP Q4H PRN PRN Reason: Nausea/Vomiting Pantoprazole Sodium (Protonix Ec Tab) 40 mg PO 0600 [facility] Last Admin: 09/07/17 05:22 Dose: 40 mg Polyethylene Glycol (Miralax) 17 gm PO BID [facility] Last Admin: 09/06/17 17:23 Dose: Not Given Tamsulosin HCl (Flomax) 0.4 mg PO 1830 [facility] Last Admin: 09/06/17 17:43 Dose: 0.4 mg - Constitutional Appears: No Acute Distress - Head Exam Head Exam: NORMOCEPHALIC - Eye Exam Pupil Exam: NORMAL ACCOMODATION - ENT Exam ENT Exam: Mucous Membranes Moist - Respiratory Exam Respiratory Exam: Clear to Ausculation Bilateral, NORMAL BREATHING PATTERN - Cardiovascular Exam Cardiovascular Exam: +S1, +S2 - GI/Abdominal Exam GI & Abdominal Exam: Soft, Normal Bowel Sounds - Extremities Exam Extremities Exam: Normal Capillary Refill - Neurological Exam Neurological Exam: Alert, Awake, Oriented x3 - Psychiatric Exam Psychiatric exam: Normal Affect, Normal Mood - Skin Skin Exam: Intact, Normal Color, Warm Assessment and Plan - Assessment and Plan (Free Text) Assessment: A 87 year old male who was initially admitted due to slurring of speech and right sided weakness. he was recently just came back from [facility]. He is non- compliant with medications. He denied cheat pain and shortness of breath. He has a history of prostate cancer,insulin dependent diabetes mellitus, cerebrovascular accident, hypertension, atrial fibrillation on Eliquis, gout. He denies chest pain and shortness of breath. denies smoking and alcohol abuse. Plan: Night uneventful Physical therapy in progress,doing well On Eliquis 2.5 mg BID, ASA 81 mg daily, lipitor 40 mg daily,Catapres 0.1 mg PRN Continue current medication Continue current treatment Cardiac status stable May discharge cardiac standpoint Will follow up Plan and treatment discussed with Dr. Carnes
[2017-09-07] MEDS: POLYETHYLENE GLYCOL 3350 17 GM/Dose PACKET PO SCH ×2 (09:06→17:51)
[2017-09-07] MEDS ORDERED: Ergocalciferol 50,000 Intl Units Cap PO SCH (10:00)
--- NOTE | 2017-09-07 21:49 | PN ---
DATE: 09/07/2017 LOCATION: Patient is seen in room 314, bed 1. SUBJECTIVE: Patient is out of bed to chair, ambulating without any assistance. Patient is ambulating in the room. There is no appreciable weakness of the right side noted. Overnight nurse's notes were reviewed. PHYSICAL EXAMINATION: VITAL SIGNS: T-max 98. Heart rate 71, 78, 86. Blood pressure 135/77, 134/72,174/77, 163/74 ,166/82. Respiration 18. O2 sat 97-99%. HEENT: Head: Normocephalic, atraumatic. HEENT examination shows pinkish conjunctivae. Anicteric sclerae. No oropharyngeal lesion. No neck rigidity. Questionable soft carotid bruit noted. CHEST: Kyphosis. LUNGS: Shows no crackles, rales or wheezing. Occasional rhonchi noted. CARDIOVASCULAR: S1, S2, regular rhythm. Questionable soft systolic murmur, left sternal border, right second intercostal space, left second intercostal space. ABDOMEN: Soft. Positive bowel sounds. EXTREMITIES: Show no pitting edema, no calf numbness, no Homans' sign. NEUROLOGIC: Patient is alert, awake, oriented x3. Motor strength is 5/5 in upper and lower extremity. Gait examination is independent. LABORATORY DATA: Fingerstick blood sugar 114, 104, 123, 139, 111, 144. IMPRESSION: 1. Deconditioning. 2. Transient ischemic attack versus cerebrovascular accident and cerebral ischemia. 3. Resolved right hemiparesis and right-sided weakness. 4. Resolved dysarthria. 5. Hypertension. 6. Gait dysfunction. 7. Chronic kidney disease stage III. 8. Mild normocytic anemia. 9. Well-controlled [id number] diabetes mellitus with hemoglobin A1c of 6.4. 10. Hypovitaminosis D. 11. Hyperlipidemia with elevated LDL. 12. Proteinuria. 13. Right internal carotid artery proximal stenosis of about 60% with flow voids in bilateral mid internal carotid artery. 14. Proximal left external carotid artery abnormal morphology secondary to artifact. 15. Bilateral internal carotid artery flow voids secondary to artifact versus a true stenosis. 16. Flow voids within the bilateral vertebral artery, artifact versus decreased flow. 17. Proximal right external carotid artery stenosis. 18. Proximal right internal carotid artery 40-60% stenosis on the carotid ultrasound. 19. Proximal left internal carotid artery 20-39% on the ultrasound. 20. Left inguinal hernia. 21. Chronic microvascular ischemic disease. 22. Left ventricular ejection fraction of 62%. 23. Pulmonary hypertension with right ventricular systolic pressure of 48 mmHg. 24. Concentric left ventricular hypertrophy. 25. Grade 2 pseudo-normal filling dynamics. 26. Moderately dilated left atrium. 27. Moderate aortic regurgitation. 28. Mild aortic stenosis with aortic sclerosis. 29. Moderate mitral annular calcification. 30. Moderate tricuspid regurgitation and pulmonary hypertension. 31. Sinus bradycardia. 32. Mild hyperuricemia. 33. Fat-containing right-sided inguinal hernia. 34. Sigmoid colon containing left-sided hernia without obstruction. 35. Paroxysmal atrial fibrillation. 36. Mild oropharyngeal dysphagia with risk for aspiration (resolved). 37. Mild receptive-expressive language deficit. 38. Moderate facial and oral-motor weakness of the right-sided dysarthria. 39. Possible cognitive defect. PLAN: At this time, patient is to be continued on clonidine 0.1 mg every 6 hours p.r.n., Colace 100 mg three times a day, vitamin D 50,000 units. Patient is on aspirin 81 mg daily, Eliquis 2.5 mg b.i.d., Flomax 0.4 mg daily, folic acid 1 mg daily Humalog medium dose sliding scale coverage, Lipitor 40 mg daily, MiraLax 17 g twice a day, Protonix 40 mg daily, Tylenol p.r.n., Zofran 4 mg IV push every 4 hours. p.r.n. Patient has been ordered out of bed to chair, ÁLVARO stockings, SCDs. Patient is also referred for physical therapy, occupational therapy. At present, patient will be considered for discharge in a.m., which has been cleared with the social welfare administrator and with the family. Social work notes were reviewed. Patient will be considered for discharge in a.m. due to some insurance issues according to the patient's son. Dictated and electronically signed, not read. Clinton Love MD
[2017-09-08] MEDS: Pantoprazole 40 mg EC Tab PO SCH (05:36)
[2017-09-08] MEDS: Insulin Lispro (humaLOG) MEDIUM Coverage SC SCH ×3 (06:38→16:51)
--- NOTE | 2017-09-08 06:58 | CP.PCM.PN ---
Subjective - Date & Time of Evaluation Date of Evaluation: 09/08/17 Time of Evaluation: 06:25 - Subjective Subjective: Awake ,denies shortness of breath,denies chest pain, wanted to go home Reason for consultation: Continuity of care in TCU, history of CVA, Atrial fibrillation on Eliquis,hypertension,diabetes mellitus Seen and examined by me and Dr. Carnes Objective - Vital Signs/Intake and Output Vital Signs (last 24 hours): Temp Pulse Resp BP Pulse Ox 97.7 F 71 16 135/77 93 L 09/07/17 16:00 09/07/17 16:00 09/07/17 16:00 09/07/17 16:00 09/07/17 16:00 - Medications Medications: Current Medications Acetaminophen (Tylenol 325mg Tab) 650 mg PO Q6H PRN PRN Reason: Temperature Acetaminophen (Tylenol 650 Mg Supp) 650 mg RC Q6H PRN PRN Reason: Temperature Apixaban (Eliquis) 2.5 mg PO BID [facility] PRN Reason: Protocol Last Admin: 09/07/17 17:50 Dose: 2.5 mg Aspirin (Ecotrin) 81 mg PO 0800 [facility] Last Admin: 09/07/17 07:48 Dose: 81 mg Atorvastatin Calcium (Lipitor) 40 mg PO 1700 [facility] Last Admin: 09/07/17 17:51 Dose: 40 mg Clonidine HCl (Catapres) 0.1 mg PO Q6 PRN PRN Reason: Systolic Blood Pressure Last Admin: 09/07/17 05:22 Dose: 0.1 mg Docusate Sodium (Colace) 100 mg PO TID [facility] Last Admin: 09/07/17 17:50 Dose: 100 mg Ergocalciferol (Drisdol 50,000 Intl Units Cap) 1 cap PO Q7D [facility] Last Admin: 09/07/17 09:05 Dose: 1 cap Folic Acid (Folic Acid) 1 mg PO DAILY [facility] Last Admin: 09/07/17 09:06 Dose: 1 mg Insulin Human Lispro (Humalog Med) 0 units SC ACHS [facility] PRN Reason: Protocol Last Admin: 09/08/17 06:38 Dose: Not Given Ondansetron HCl (Zofran Inj) 4 mg IVP Q4H PRN PRN Reason: Nausea/Vomiting Pantoprazole Sodium (Protonix Ec Tab) 40 mg PO 0600 [facility] Last Admin: 09/08/17 05:36 Dose: 40 mg Polyethylene Glycol (Miralax) 17 gm PO BID [facility] Last Admin: 09/07/17 17:51 Dose: 17 gm Tamsulosin HCl (Flomax) 0.4 mg PO 1830 [facility] Last Admin: 09/07/17 17:50 Dose: 0.4 mg - Constitutional Appears: No Acute Distress - Head Exam Head Exam: NORMOCEPHALIC - ENT Exam ENT Exam: Mucous Membranes Moist - Respiratory Exam Respiratory Exam: Clear to Ausculation Bilateral, NORMAL BREATHING PATTERN - Cardiovascular Exam Cardiovascular Exam: +S1, +S2 - GI/Abdominal Exam GI & Abdominal Exam: Soft, Normal Bowel Sounds - Extremities Exam Extremities Exam: Normal Capillary Refill - Neurological Exam Neurological Exam: Alert, Awake, Oriented x3 - Psychiatric Exam Psychiatric exam: Normal Affect, Normal Mood - Skin Skin Exam: Intact, Normal Color, Warm Assessment and Plan - Assessment and Plan (Free Text) Assessment: A 87 year old male who was initially admitted due to slurring of speech and right sided weakness. he was recently just came back from [place]. He is non- compliant with medications. He denied cheat pain and shortness of breath. He has a history of prostate cancer,insulin dependent diabetes mellitus, cerebrovascular accident, hypertension, atrial fibrillation on Eliquis, gout. He denies chest pain and shortness of breath. denies smoking and alcohol abuse. Plan: Physical therapy in progress,doing well Home care being set up for discharge On Eliquis 2.5 mg BID, ASA 81 mg daily, lipitor 40 mg daily,Catapres 0.1 mg PRN Continue current medication Continue current treatment Cardiac status stable May discharge cardiac standpoint Will follow up Plan and treatment discussed with Dr. Carnes
[2017-09-08] MEDS: POLYETHYLENE GLYCOL 3350 17 GM/Dose PACKET PO SCH ×2 (10:29→17:10)
[2017-09-08 13:37] VITALS: RESP 20
[2017-09-08 17:10] VITALS: BP 169/85; PULSE 78; TEMP 98.8; O2SAT 98
--- NOTE | 2017-09-09 09:22 | DS ---
FINAL PROGRESS NOTE AND DISCHARGE SUMMARY HISTORY OF PRESENT ILLNESS: Patient was cleared for discharge by Physical Therapy and [employer] after patient completed approved TCU stay. Patient was seen in room 314, bed 1. PHYSICAL EXAMINATION: GENERAL: Patient is out of bed to chair, alert, awake, responsive. VITAL SIGNS: T-max 98.8; pulse rate 68, 78, 71; blood pressure 169/89, 156/88, 135/77, 134/72, 134/72; respiration 20; O2 sat 98% to 100%. HEENT: Head examination, normocephalic, atraumatic. HEENT examination shows pink conjunctivae. Anicteric sclerae. No oropharyngeal lesion. No neck rigidity. CHEST: Kyphosis. LUNGS: Examination shows no rales, crackles or wheezing. CARDIOVASCULAR: Shows S1, S2, regular rhythm. Positive systolic murmur left sternal border, right second intercostal space, left second intercostal space. ABDOMEN: Soft, slightly protuberant. No hepatosplenomegaly noted. GENITALIA: Male. RECTAL: Examination is deferred. EXTREMITIES: Shows no pitting edema, no calf tenderness, no Homans' sign. NEUROLOGIC: Patient is alert, awake and oriented x3. Cranial nerves II through XII grossly intact. Motor strength of the right upper and lower extremity is 5-/5. Gait examination is independent without any deficit. MUSCULOSKELETAL: Shows a body mass index of 26. DIAGNOSTICS: None. Fingerstick blood sugar 116, 95, 116, 113, 114. FINAL IMPRESSION, PLAN AND DISCHARGE DIAGNOSES: 1. Gait dysfunction. 2. Deconditioning. 3. Possible cerebral ischemia versus transient ischemic attack with resolving right-sided weakness. 4. Dysarthria. 5. Hypertension. 6. Constipation. 7. Hypovitaminosis D. 8. Eliquis-requiring atrial fibrillation. 9. Prostatic hypertrophy. 10. Dyslipidemia. 11. Mild oral dysphagia with [id number] aspiration risk with right-sided tongue weakness. 12. Mild receptive expressive language deficit with moderate facial and oral motor weakness of the right side with dysarthria. 13. Possible cognitive deficit. 14. Hearing deficit. 15. Feeding dysfunction (resolving). 16. Noninsulin-requiring diabetes mellitus. As mentioned, patient was cleared for discharge after the patient has completed the approved TCU stay. DISCHARGE MEDICATIONS: 1. Colace 100 mg three times a day. 2. Allopurinol 100 mg twice a day. 3. Eliquis 2.5 mg twice a day. 4. Ecotrin 81 mg daily. 5. Lipitor 40 mg daily. 6. Vitamin D3 2000 units daily. 7. Drisdol 50,000 weekly. 8. Folic acid 1 mg daily. 9. Metformin 500 mg twice a day. 10. Protonix 40 mg daily. 11. MiraLax 17 g twice a day. 12. Flomax 0.4 mg daily. Patient is to be discharged home after completion of the approved TCU stay. Patient's case referred to [facility], home PT upon discharge. Discharge medications as per updated ambulatory orders and new scripts. The patient was given a copy of the diet upon discharge. DISCHARGE FOLLOWUP: With Dr. Love within 1 week. During this hospitalization, patient and the patient's family were extensively explained about the details of the patient's condition, diagnosis, treatment plan, management plan and close outpatient followup, which they acknowledged and understood. All questions concerned answered. Dictated and electronically signed, not read. Clinton Love MD
== END 2017-09-08 18:43 | disposition home or self-care (01) | DRG 57 ==
LOC: TRCU 18:20
PROVIDERS: ADMIT Internal Medicine; ATTEND Internal Medicine
PROC: F07Z9ZZ Gait Training/Functional Ambulation Treatment (ICD-10-PCS; principal; 2017-09-04)
PROC: F08Z4ZZ Home Management Treatment (ICD-10-PCS; 2017-09-04)
DX: I69.351 Hemiplegia and hemiparesis following cerebral infarction affecting right dominant side (principal); I25.10 Atherosclerotic heart disease of native coronary artery without angina pectoris; N40.0 Benign prostatic hyperplasia without lower urinary tract symptoms; I27.20 Pulmonary hypertension, unspecified; I08.2 Rheumatic disorders of both aortic and tricuspid valves; N18.3 Chronic kidney disease, stage 3 (moderate); E11.22 Type 2 diabetes mellitus with diabetic chronic kidney disease; I12.9 Hypertensive chronic kidney disease with stage 1 through stage 4 chronic kidney disease, or unspecified chronic kidney disease; D64.9 Anemia, unspecified; I48.0 Paroxysmal atrial fibrillation; I65.21 Occlusion and stenosis of right carotid artery; E55.9 Vitamin D deficiency, unspecified; K40.90 Unilateral inguinal hernia, without obstruction or gangrene, not specified as recurrent; K29.70 Gastritis, unspecified, without bleeding; K59.00 Constipation, unspecified; R63.3 Feeding difficulties; R13.12 Dysphagia, oropharyngeal phase; R47.1 Dysarthria and anarthria; Z91.14 Patient's other noncompliance with medication regimen; Z85.46 Personal history of malignant neoplasm of prostate